=== PATIENT | female | born 1950 | race Caucasian/White ===

== ENCOUNTER 2016-04-19 08:01 | Outpatient (RCR) | payer MEDICARE ==
--- OUTSIDE RECORDS SUMMARY | 2016-01-24 08:13 | XMS REPORT | Continuity of Care Document ---
Author Author [facility] Organization [facility] Address Unknown Phone Unavailable Care Team Providers Care Whitewasher Name Role Phone MEGHNA CASTRO MD PCP Insurance Providers Payer Name Policy Number Subscriber Name Relationship Wps Medicare [id number] Gaby Conti 18 Self / Same As Patient Blue Cross [facility] Supp [id number] Gaby Conti 18 Self / Same As Patient Advance Directives Directive Response Recorded Date/Time Advance Directives No 11/17/15 9:36am Health Care Power of Master Planner No 11/17/15 9:36am Organ Donor Yes 11/17/15 9:36am Problems No problem information available. Medications Current Home Medications Medication Dose Units Route Directions Days/Qty Instructions Start Date Sevelamer Carbonate 800 Mg 2,400 Mg Oral Three Times Daily With Meals take 4 (800mg) tab 11/14/15 Sevelamer Carbonate 800 Mg 1,600 Mg Oral Bedtime take 2 (800mg) tabs 11/14/15 Famotidine 20 Mg Oral Daily 11/14/15 Clonidine Hcl 0.1 Mg 0.1 Mg Oral Three Times A Day as needed for High Blood Pressure 11/14/15 Carvedilol 25 Mg 25 Mg Oral Twice A Day 11/14/15 Aspirin 81 Mg 81 Mg Oral Daily 11/14/15 Warfarin Sodium 10 Mg 10 Mg Oral Bedtime 11/14/15 Simvastatin 40 Mg 40 Mg Oral Bedtime 11/14/15 Dicloxacillin Sodium 500 Mg 500 Mg Oral Four Times Daily 11/14/15 Hydrocodone/Acetaminophen 1 Each 1-2 Each Oral Every 4HRS 35 11/17/15 Past Home Medications Medication Directions Ordered Status Amiodarone Hcl 200 Mg Tablet, 200 Mg Oral Twice A Day 02/09/14 Discontinued Amlodipine Besylate (Norvasc 5 Mg) 5 Mg Tablet, 5 Mg Oral Twice A Day Discontinued Aspirin 81 Mg Chew, 81 Mg Oral Daily 02/09/14 Discontinued Atorvastatin Calcium 80 Mg Tablet, 80 Mg Oral Bedtime 02/09/14 Discontinued Vit B Cmplx 3/Fa/Vit C/Biotin 1 Each Tablet, 1 Tab Oral Daily 02/09/14 Discontinued Levothyroxine Sodium 50 Mcg Tablet, 50 Mcg Oral Daily 02/09/14 Discontinued [Magnesium Gluc] , 500 Mg Oral Three Times A Day 02/09/14 Discontinued Melatonin/Pyridoxine Hcl (B6) 1 Each Tablet, 5 Mg Oral Bedtime 02/09/14 Discontinued Metoclopramide Hcl (Reglan) 10 Mg Tablet, 10 Mg Oral Every 6 Hours 02/09/14 Discontinued Pantoprazole Sod 40 Mg Tab, 40 Mg Oral Daily 02/09/14 Discontinued Carvedilol (Coreg) 25 Mg Tablet, 25 Mg Oral Twice A Day 02/09/14 Discontinued Lisinopril (Zestril) 20 Mg Tablet, 20 Mg Oral 1700 02/09/14 Discontinued Furosemide (Lasix) 80 Mg Tablet, 80 Mg Oral Sat,Sat,Sat02/09/14 Discontinued Sevelamer Carbonate 800 Mg Tablet, 800 Mg Oral Three Times A Day Before Meals 02/09/14 Discontinued Famotidine (Pepcid) 20 Mg Tablet, 20 Mg Oral Daily 02/09/14 Discontinued Nitroglycerin 0.4 Mg Tab.subl, 0.4 Mg Sublingual Daily as needed for Chest Pain 02/09/14 Discontinued [Amiodarone Hcl] 200 Mg Tab, 200 Mg Oral Twice A Day 02/10/14 Discontinued Albuterol Sulfate 2.5 Mg/3 Ml Nebu, 2.5 Mg Inhalation Rt Q2hr From Start Time as needed for Soa 02/10/14 Discontinued Acetaminophen 325 Mg Tab, 650 Mg Oral Every 4HRS as needed for Mild Pain Discontinued Metoclopramide Hcl 5 Mg Tab, 5 Mg Oral Before Meals And At Bedtime 02/10/14 Discontinued [Magnesium Oxide] 400 Mg Tab, 400 Mg Oral Three Times Daily With Meals Discontinued [Melatonin] 3 Mg Tablet, 6 Mg Oral Bedtime 02/10/14 Discontinued Pantoprazole Sod 40 Mg Tab, 40 Mg Oral Daily@0700 02/10/14 Discontinued [Amlodipine Besylate] 5 Mg Tab, 5 Mg Oral Twice A Day 02/10/14 Discontinued [Atorvastatin Calcium] 80 Mg Tablet, 80 Mg Oral Bedtime 02/10/14 Discontinued Social History Social History Problem Response Recorded Date/Time Alcohol Use Denies Use 11/17/2015 9:36am Recreational Drug Use No 11/17/2015 9:36am Recent Foreign Travel No 12/06/2015 7:58am Sexually Transmitted Disease No 11/17/2015 9:36am HIV/AIDS No 11/17/2015 9:36am Type Used Cigarettes 11/17/2015 3:46pm Sexually Transmitted Disease No 11/17/2015 9:36am Hospital Discharge Instructions No hospital discharge instructions. Plan of Care Prescriptions See Medication Section Functional Status No functional status results. Allergies, Adverse Reactions, Alerts No known allergies. Immunizations No immunization records. Vital Signs No known vital signs results. Results Microbiology Results Procedure Source Result Collection Date/Time Result Date/Time Anaerobic Culture Tissue, Coccyx No growth 12/06/2015 9:35am 12/09/2015 2: 31pm Wound Culture Tissue, Coccyx No growth 12/06/2015 9:35am 12/07/2015 8:59am Anaerobic Culture Tissue, Coccyx No growth 12/20/2015 8:45am 12/22/2015 12: 55pm Wound Culture Tissue, Coccyx No growth 12/20/2015 8:45am 12/21/2015 8:54am Procedures No known history of procedures. Encounters Encounter Location Arrival/Admit Date Discharge/Depart Date Attending Provider Discharged Recurring [facility] 01/17/16 8:11am 8:51am JEREMIAH BENTLEY MD
[~2016-04-19 08:01] MED LIST: AC325T PO; ALBU2.5V52 INH; AMIO200T PO; AMLO5TAB2 PO; ASP81CT PO; ASPI-586 PO; ATOR80TA75 PO; Amiodarone Hcl PO; Amlodipine Besylate PO; Atorvastatin Calcium PO; CARV25TA PO; CLON0.1T PO; DICL500C PO; FAMO20TA3 PO; FAMO20TA5 PO; FURO80TA3 PO; HYDR-3730 PO; LEVO50TA59 PO; LISI20TA PO; MAGNESIUM GLUC PO; MELA1TAB16 PO; METO10TA3 PO; METO5TAB2 PO; Magnesium Oxide PO; Melatonin PO; NITR0.4T SL; PNT40TEC PO; SEVE800T7 PO; SIMV40TA4 PO; VIT1TABL59 PO; WARF10TA44 PO; [UNRECOGNIZED DRUG - CODE] PO
== END 2016-04-23 | disposition home or self-care (01) ==
LOC: WOUNDCARE 08:01
PROVIDERS: ATTEND Surgery
DX: L98.423 Non-pressure chronic ulcer of back with necrosis of muscle (principal); T81.31XA Disruption of external operation (surgical) wound, not elsewhere classified, initial encounter; N18.6 End stage renal disease; T65.222D Toxic effect of tobacco cigarettes, intentional self-harm, subsequent encounter
CPT/HCPCS: 11042; 11045; 15271; 87070; 87075; 87077; 87101; 87186; 87205; 97605

== ENCOUNTER 2016-05-31 09:50 | Outpatient (CLI) | payer MEDICARE ==
[~2016-05-31] VITALS: Ht 162.6 cm; Wt 64.5 kg
--- OUTSIDE RECORDS SUMMARY | 2016-05-31 09:54 | XMS REPORT | Continuity of Care Document ---
Author Author [facility] Organization [facility] Address Unknown Phone Unavailable Care Team Providers Care Engineer Geophysical Laboratory Name Role Phone MEGHNA CASTRO MD PCP Insurance Providers Payer Name Policy Number Subscriber Name Relationship Wps Medicare [id number] Gaby Conti 18 Self / Same As Patient Blue Cross [facility] Supp [id number] Gaby Conti 18 Self / Same As Patient Advance Directives Directive Response Recorded Date/Time Advance Directives No 11/17/15 9:36am Health Care Power of Technical Specialist Cytology No 11/17/15 9:36am Organ Donor Yes 11/17/15 [...] Discharge/Depart Date Attending Provider Discharged Recurring [facility] 01/17/16 8:11am 8:51am JEREMIAH BENTLEY MD
[2016-05-31 10:00] VITALS: BP 166/86
[2016-05-31] MEDS ORDERED: CARV12.53 PO (10:16)
[2016-05-31] MEDS ORDERED: HYDR-3812 PO (10:16)
[2016-05-31] MEDS ORDERED: SODI650T PO (10:16)
[2016-05-31] MEDS ORDERED: WARF4TAB70 PO (10:16)
== END 2016-05-31 10:15 | disposition home or self-care (01) ==
LOC: PREOP 09:50
PROVIDERS: ATTEND Podiatrist Foot & Ankle Surgery
DX: Z01.818 Encounter for other preprocedural examination (principal); Z11.2 Encounter for screening for other bacterial diseases; M86.672 Other chronic osteomyelitis, left ankle and foot
CPT/HCPCS: 87081

== ENCOUNTER 2016-06-01 11:18 | Day surgery (SDC) | payer MEDICARE ==
[~2016-06-01] VITALS: Ht 162.6 cm; Wt 64.5 kg
[~2016-06-01 11:18] MED LIST changes: +CARV12.53 PO; +HYDR-3812 PO; +SODI650T PO; +WARF4TAB70 PO
--- OUTSIDE RECORDS SUMMARY | 2016-06-01 11:30 | XMS REPORT | Continuity of Care Document ---
Author Author [facility] Organization [facility] Address Unknown Phone Unavailable Care Team Providers Care Cable Hooker Name Role Phone MEGHNA CASTRO MD PCP Insurance Providers Payer Name Policy Number Subscriber Name Relationship Wps Medicare [id number] Gaby Conti 18 Self / Same As Patient Blue Cross [facility] Supp [id number] Gaby Conti 18 Self / Same As Patient Advance Directives Directive Response Recorded Date/Time Advance Directives No 11/17/15 9:36am Health Care Power of Lighting Engineer No 11/17/15 9:36am Organ Donor Yes 11/17/15 [...] Discharge/Depart Date Attending Provider Discharged Recurring [facility] 01/17/16 8:11am 8:51am JEREMIAH BENTLEY MD
--- OUTSIDE RECORDS SUMMARY | 2016-06-01 11:31 | XMS REPORT | Continuity of Care Document ---
Author Author [facility] Organization [facility] Address Unknown Phone Unavailable Care Team Providers Care Pediatric Oncologist Name Role Phone MEGHNA CASTRO MD PCP Insurance Providers Payer Name Policy Number Subscriber Name Relationship Wps Medicare [id number] Gaby Conti 18 Self / Same As Patient Blue Cross [facility] Supp [id number] Gaby Conti 18 Self / Same As Patient Advance Directives Directive Response Recorded Date/Time Advance Directives No 11/17/15 9:36am Health Care Power of Tea Tree Farmer No 11/17/15 9:36am Organ Donor Yes 11/17/15 [...] Discharge/Depart Date Attending Provider Discharged Recurring [facility] 01/17/16 8:11am 8:51am JEREMIAH BENTLEY MD
[2016-06-01] MEDS ORDERED: ceFAZolin 1 GM/NS 50 ML IVPB IV ONE ×2 (11:45)
[2016-06-01] MEDS ORDERED: LACTATED RINGERS 1,000 ML IV PRN (11:46)
[2016-06-01] MEDS ORDERED: MIDAZOLAM 2 MG/2 ML (VERSED) VIAL ONE (11:52)
[2016-06-01] MEDS ORDERED: LIDOCAINE PF 2% 10 ML (XYLOCAINE) AMP ONE (11:52)
[2016-06-01] MEDS ORDERED: proPOfol 200 MG/20 ML (DIPRIVAN) VIAL IV ONE (11:52)
[2016-06-01] MEDS ORDERED: fentaNYL INJECTION 100 MCG/2 ML AMP ONE (11:52)
[2016-06-01 12:12] VITALS: BP 120/72
[2016-06-01] MEDS ORDERED: BUPIVACAINE 0.5% 30 ML (SENSORCAINE) VIAL ONE (12:22)
[2016-06-01] MEDS ORDERED: LIDOCAINE 1% INJ 20 ML (XYLOCAINE) VIAL ONE (12:22)
[2016-06-01 12:25] LABS: INR 1.1 (0.8-1.4); PROTHROMBIN TIME PATIENT 13.9 SEC (12.2-14.7)
--- NOTE | 2016-06-01 12:33 | Progress Note-Pre Operative ---
Pre-Operative Progress Note H&P Reviewed The H&P was reviewed, patient examined and no changes noted. Date H&P Reviewed: Jun 01, 2016 Time H&P Reviewed: 12:32 Pre-Operative Diagnosis: Osteomyelitis left 3rd toe ARSLAN BRITO DPM Jun 01, 2016 12:33 pm
[2016-06-01] MEDS ORDERED: NS IV 500 ML 500 ML ONE (13:37)
[2016-06-01] MEDS ORDERED: LACTATED RINGERS 1,000 ML IV SCH (13:39)
--- NOTE | 2016-06-01 13:39 | Progress Note-Post Operative ---
Post-Operative Progess Note Pre-Operative Diagnosis Osteomyelitis left 3rd toe Post-Operative Diagnosis Same Post-Op Procedure Note Date of Procedure: Jun 01, 2016 Name of Procedure: Amputation of the left 3rd toe Anesthesia Type MAC Estimated blood loss (mL): Minimal Packing: none Specimen(s) collected 1) left 3rd toe distal and middle phalanx 2) head of the left 3rd toe proximal phalanx ARSLAN BRITOM Jun 01, 2016 1:39 pm
[2016-06-01] MEDS ORDERED: ONDANSETRON 4 MG/2 ML (SDV) Z0FRAN IV PRN (13:45)
[2016-06-01] MEDS ORDERED: PROMETHAZINE INJ 25 MG/ML (PHENERGAN) AMP IV PRN (13:45)
[2016-06-01] MEDS ORDERED: morphine INJ 10 MG/ML 1ML (SYR OR VIAL) IV PRN (13:45)
[2016-06-01] MEDS ORDERED: HYDROcodone/APAP 5 MG/325 MG (LORTAB) TAB PO PRN (13:45)
[2016-06-01 14:40] VITALS: BP 195/81
[2016-06-01 14:55] VITALS: BP 195/81
--- NOTE | 2016-06-03 11:51 | OPERATIVE REPORT ---
PROCEDURE PHYSICIAN: OLIVIA BRITO DATE OF PROCEDURE: 06/01/2016 SURGEON: Olivia Brito DPM PREOPERATIVE DIAGNOSIS: Osteomyelitis left 3rd toe. POSTOPERATIVE DIAGNOSIS: Osteomyelitis left 3rd toe. PROCEDURE: Amputation left 3rd toe. WOUND CLASS: Contaminated. ANESTHESIA: Monitored anesthesia care. HEMOSTASIS: None. INDICATION: This 65-year-old female presented to my office after she had a chronic wound healed to the left 3rd toe. Upon x-ray there is significant osteolyses of the entire distal phalanx left 3rd toe, then extending into the proximal phalanx. We discussed different options including conservative therapy, as well as surgical options. The patient has opted to have an amputation of the left 3rd toe understanding that there is a chance of the wound not healing, continued infection and other complications and she is willing to proceed. PROCEDURE: The patient was brought back to operating table, placed in a secure, supine position. Pneumatic ankle tourniquet was placed over the left lower extremity over several layers of padding. It was never inflated during the procedure. The left foot was anesthetized utilizing 12 mL of 1:1 mixture 1% Xylocaine 0.5% Marcaine injected in a local infusion to the distal 3rd ray around the metatarsal head area. The left foot was then prepped and draped in normal sterile manner. Attention was then directed to the left 3rd digit where some erythema was present to the distal aspect of the toe. Scar tissue consistent with a chronic wound. There is no active exudate. There is no proximal streaking noted. An incision was created in a racquet-type incision, the long hand of the racquet handle incision was dorsal extending to the medial and lateral aspect of the digit overlying the proximal interphalangeal joint area. The proximal interphalangeal joint was disarticulated and the specimen sent for gross and microscopic evaluation which included the distal and middle phalanx. Beyond this, the more proximal portion of the digit has no pathology visualized. The wound was flushed the most extensor and flexor tendons were cut as proximally as possible. Utilizing a power sagittal saw the head of the proximal phalanx was removed. This allowed for closure to be performed without any tension to the skin. The wound was flushed with copious amounts of normal saline. A swab culture was taken before closure. Closure was then performed with 4-0 Prolene in a simple interrupted type stitch noting appropriate perfusion to the skin edges of the amputation site. Postoperative dressing consisted of Betadine soaked Adaptic, sterile 4 x 4, sterile Kerlix, all secured with a Coban wrap. The patient tolerated the anesthesia and procedure well and was transported from the operating room to the recovery area with vital signs stable and vascular status intact to all remaining digits of the left foot with the appropriate capillary fill time. She is to continue with antibiotic. The patient is to follow-up in my office in one week period of time or sooner if necessary. She is to be partial weight-bearing with a walker and a surgical splint shoe. Job ID: [id number] Dictated Date: 06/01/2016 13:45:40 Vending Manager Date: 06/03/2016 11:35:22 / pastora
== END 2016-06-01 14:55 | disposition home or self-care (01) ==
LOC: SDC 11:18
PROVIDERS: ATTEND Podiatrist Foot & Ankle Surgery
DX: M86.672 Other chronic osteomyelitis, left ankle and foot (principal); Z79.01 Long term (current) use of anticoagulants
CPT/HCPCS: 36415; 85610; 87070; 87075; 87205; 88304; 88305; 88311

== ENCOUNTER 2016-07-17 08:10 | Outpatient (RCR) | payer MEDICARE ==
--- OUTSIDE RECORDS SUMMARY | 2016-04-24 08:14 | XMS REPORT | Continuity of Care Document ---
Author Author [facility] Organization [facility] Address Unknown Phone Unavailable Care Team Providers Care Leach Runner Name Role Phone MEGHNA CASTRO MD PCP Insurance Providers Payer Name Policy Number Subscriber Name Relationship Wps Medicare [id number] Gaby Conti 18 Self / Same As Patient Blue Cross [facility] Supp [id number] Gaby Conti 18 Self / Same As Patient Advance Directives Directive Response Recorded Date/Time Advance Directives No 11/17/15 9:36am Health Care Power of Water Operator No 11/17/15 9:36am Organ Donor Yes 11/17/15 [...] Discharge/Depart Date Attending Provider Discharged Recurring [facility] 01/17/16 8:11am 8:51am JEREMIAH BENTLEY MD
== END 2016-07-23 | disposition home or self-care (01) ==
LOC: WOUNDCARE 08:10
PROVIDERS: ATTEND Surgery
DX: L98.423 Non-pressure chronic ulcer of back with necrosis of muscle (principal); T81.31XA Disruption of external operation (surgical) wound, not elsewhere classified, initial encounter; N18.6 End stage renal disease; T65.222D Toxic effect of tobacco cigarettes, intentional self-harm, subsequent encounter
CPT/HCPCS: 11042; 87070; 87075; 87205; 97605; 99212

== ENCOUNTER 2017-01-11 10:15 | Outpatient (RCR) | payer MEDICARE | END 2017-01-19 | disposition home or self-care (01) | LOC: ONC 10:15 | PROVIDERS: ATTEND Radiology Radiation Oncology | DX: C44.320 Squamous cell carcinoma of skin of unspecified parts of face (principal) | CPT/HCPCS: 99214 ==

== ENCOUNTER → 2017-01-22 | Outpatient (CLI) | payer MEDICARE | LOC: RAD 13:56 | DX: C44.329 Squamous cell carcinoma of skin of other parts of face (principal) | CPT/HCPCS: 71250 ==

== ENCOUNTER 2017-04-26 09:33 | Outpatient (RCR) | payer MEDICARE, BC ==
[~2017-04-26 09:33] MED LIST changes: +ACHD5005 PO; +ARTIFICIAL TEARS OU SCH; -HYDR-3812 PO; +TETRACAINE 0.5% OU SCH
== END 2017-05-09 | disposition home or self-care (01) ==
LOC: ONC 09:33
PROVIDERS: ATTEND Radiology Radiation Oncology
DX: C44.320 Squamous cell carcinoma of skin of unspecified parts of face (principal)
CPT/HCPCS: 77290; 77300; 77332; 77334; 77336

== ENCOUNTER → 2018-07-17 | Outpatient (CLI) | payer MEDICARE ==
[~2018-07-17] MED LIST changes: -ARTIFICIAL TEARS OU SCH; -TETRACAINE 0.5% OU SCH
[2018-07-17 11:50] LABS: INR 1.8 (0.8-1.4); PROTHROMBIN TIME PATIENT 21.3 SEC (12.2-14.7)
== END ==
LOC: LAB FS 11:18
PROVIDERS: ATTEND Family Medicine
DX: Z51.81 Encounter for therapeutic drug level monitoring (principal); Z79.01 Long term (current) use of anticoagulants
CPT/HCPCS: 36415; 85610

== ENCOUNTER → 2018-07-31 | Outpatient (CLI) | payer MEDICARE | LOC: CARD 09:49 | PROVIDERS: ATTEND Internal Medicine Cardiovascular Disease | DX: I48.91 Unspecified atrial fibrillation (principal); J44.9 Chronic obstructive pulmonary disease, unspecified; I12.0 Hypertensive chronic kidney disease with stage 5 chronic kidney disease or end stage renal disease; N18.6 End stage renal disease; Z72.0 Tobacco use; I34.0 Nonrheumatic mitral (valve) insufficiency | CPT/HCPCS: 93306 ==

== ENCOUNTER → 2018-08-01 | Outpatient (CLI) | payer MEDICARE ==
[~2018-08-01] VITALS: Ht 162.6 cm; Wt 56.7 kg
[~2018-08-01] MED LIST changes: +CATHETER FLUSH 10 ML SYR IV PRN; +REGADENOSON 0.4 MG/5 ML SYR (LEXISCAN) IV ONE
[2018-08-01 08:28] VITALS: BP 173/127
[2018-08-01 08:30] VITALS: BP 152/71
--- NOTE | 2018-08-01 13:00 | STRESS TEST ---
DATE OF SERVICE: 08/01/2018 LEXISCAN MYOVIEW STRESS TEST REPORT REFERRING PHYSICIAN Baseline heart rate is 94. Baseline blood pressure is 173/83. Baseline EKG is atrial fibrillation with no ischemic changes. In summary, the patient was injected with 10.66 mCi of technetium-99 Myoview and the resting images were obtained. With peak stress level, then the patient received 0.4 mg of Lexiscan followed by 32.0 mCi of technetium-99 Myoview. Throughout the test, there were no EKG changes. The resting and stress images were reviewed and compared in the short axis, horizontal long axis, and vertical long axis views. Review of the images showed a good radiotracer uptake, there is mild decreased uptake at the mid to apical inferolateral wall with subtle reversibility, no significant ischemia was noted. SSS is 4, SDS is 4, TID value 1.11. On the gated images, the left ventricle appeared to be normal size with normal contractility. Calculated ejection fraction is 71%. CONCLUSION: 1. The patient tolerated Lexiscan well. 2. Mild extra cardiac attenuation affecting the quality of the images. There is mild decreased uptake at the mid to apical inferolateral wall with subtle reversibility, no significant ischemia or infarction was seen. 3. Normal left ventricular size with normal contractility. Calculated ejection fraction is 61%, gated images are unreliable due to underlying atrial fibrillation. Job ID: [id number] DocumentID: [id number] Dictated Date: 08/01/2018 10:32:54 Hand Roller Engraver Date: 08/01/2018 12:59:28 Dictated By: CHAYO HERMAN MD
== END ==
LOC: CARD 06:35
PROVIDERS: ATTEND Internal Medicine Cardiovascular Disease
DX: I48.91 Unspecified atrial fibrillation (principal); J44.9 Chronic obstructive pulmonary disease, unspecified; I12.0 Hypertensive chronic kidney disease with stage 5 chronic kidney disease or end stage renal disease; N18.6 End stage renal disease; Z72.0 Tobacco use
CPT/HCPCS: 78452; 93017

== ENCOUNTER → 2018-08-14 | Outpatient (CLI) | payer MEDICARE ==
[~2018-08-14] MED LIST changes: -CATHETER FLUSH 10 ML SYR IV PRN; -REGADENOSON 0.4 MG/5 ML SYR (LEXISCAN) IV ONE
[2018-08-14 11:02] LABS: INR 1.1 (0.8-1.4); PROTHROMBIN TIME PATIENT 14.6 SEC (12.2-14.7)
== END ==
LOC: LAB FS 10:17
PROVIDERS: ATTEND Family Medicine
DX: Z51.81 Encounter for therapeutic drug level monitoring (principal); Z79.01 Long term (current) use of anticoagulants
CPT/HCPCS: 36415; 85610

== ENCOUNTER → 2018-08-21 | Outpatient (CLI) | payer MEDICARE ==
[~2018-08-21] MED LIST changes: +WARF6TAB49 PO
== END ==
LOC: LAB FS 16:33
PROVIDERS: ATTEND Family Medicine
DX: I12.0 Hypertensive chronic kidney disease with stage 5 chronic kidney disease or end stage renal disease (principal); N18.6 End stage renal disease; I25.10 Atherosclerotic heart disease of native coronary artery without angina pectoris; I73.9 Peripheral vascular disease, unspecified; I48.0 Paroxysmal atrial fibrillation; Z79.82 Long term (current) use of aspirin; Z79.01 Long term (current) use of anticoagulants

== ENCOUNTER 2018-08-26 11:38 | Outpatient (CLI) | payer MEDICARE ==
[~2018-08-26] VITALS: Ht 162.6 cm; Wt 59.0 kg
[~2018-08-26 11:38] MED LIST changes: -WARF6TAB49 PO
[2018-08-26] MEDS ORDERED: WARF6TAB49 PO (12:57)
== END 2018-08-26 13:51 | disposition home or self-care (01) ==
LOC: PREOP 11:38
PROVIDERS: ATTEND Podiatrist Foot & Ankle Surgery
DX: Z01.818 Encounter for other preprocedural examination (principal)

== ENCOUNTER → 2018-08-28 | Outpatient (CLI) | payer MEDICARE ==
[~2018-08-28] MED LIST changes: +WARF6TAB49 PO
== END | disposition home or self-care (01) ==
LOC: PREOP 05:39
PROVIDERS: ATTEND Podiatrist Foot & Ankle Surgery
DX: Z01.818 Encounter for other preprocedural examination (principal)

== ENCOUNTER 2018-09-01 05:50 | Day surgery (SDC) | payer MEDICARE ==
[2018-09-01] VITALS (7 sets, daily range): BP systolic 108–126; BP diastolic 49–55
[~2018-09-01] VITALS: Ht 158.8 cm; Wt 59.4 kg
--- OUTSIDE RECORDS SUMMARY | 2018-09-01 05:52 | XMS REPORT | Clinical Summary ---
Author Author [facility] Organization [facility] Address Unknown Phone Unavailable Care Team Providers Care Bullet Slug Casting Machine Operator Name Role Phone Self, Damon PERALTA PCP Unavailable Source Comments Some departments are not documenting in the electronic medical record. If you do not see the information that you expected, contact Release of Information in the Health Information Management department at [phone] for further assistance in locating additional records.[facility] Allergies No Known Allergies Medications End Date Status Medication Sig Dispensed Refills Start Date Active aspirin EC 81 mg tablet Take 81 mg by 0 mouth daily after lunch. Take with food. Active famotidine (PEPCID) 20 mg Take 20 mg by 0 tablet mouth daily after lunch. Active Sevelamer Carbonate Take 2 Tabs 0 (RENVELA) 800 mg tab by mouth three times daily with meals. And 1 tablet with each snack Active sodium bicarbonate 650 mg Take 650 mg 0 tablet by mouth twice daily. Active senna (SENOKOT) 8.6 mg Take 1 Tab by 90 Tab 3 tablet mouth twice 7 daily. Active carvedilol (COREG) 25 mg Take 25 mg by 0 tablet mouth twice daily with meals. Take with food. Active mupirocin (BACTROBAN) 2 % Apply 22 g 0 topical ointment topically to 8 affected area twice daily. Apply to buttock incision daily and cover with abd pad/hypafix tape, wash soap and water prior to dressing change Active warfarin (COUMADIN) 4 mg Take 1 tablet 90 tablet 3 tablet by mouth at 8 bedtime daily. Active amLODIPine (NORVASC) 10 Take 1 tablet 90 tablet 3 mg tablet by mouth 8 daily. Active metroNIDAZOLE (FLAGYL) Take 1 tablet 12 tablet 0 500 mg tablet by mouth 8 twice daily with food. Do not drink alcohol while on metronidazole . Active levoFLOXacin (LEVAQUIN) Take 1 tablet 3 tablet 0 500 mg tablet by mouth 8 every 48 hours. Start on 06/06 Active traMADol (ULTRAM) 50 mg Take 1-2 33 tablet 0 tablet tablets by 8 mouth every 6 hours as needed for Pain. Active senna/docusate (SENNA-S) Take 1 tablet 40 tablet 0 8.6/50 mg tablet by mouth 8 daily. Take while taking prescription pain medication as they can cause constipation. Hold for loose stools. Active ondansetron (ZOFRAN ODT) Dissolve 1 10 tablet 0 4 mg rapid dissolve tablet by 8 tablet mouth every 8 hours as needed for Nausea or Vomiting. Active oxyCODONE (ROXICODONE, Take 1 tablet 30 tablet 0 OXY-IR) 5 mg by mouth 8 tabletIndications: every 6 hours Decubitus ulcer of right as needed buttock, stage 3 (HCC), Late effect of radiation, Complex wound of head Active Problems Problem Noted Date Sacral ulcer 05/29/2017 Pressure ulcer of contiguous region involving back, buttock, and hip, stage 05/23/2017 3 Overview: Added automatically from request for surgery [id number] Late effect of radiation 05/08/2017 Complex wound of head 05/08/2017 Squamous cell carcinoma, face 12/19/2016 Overview: Added automatically from request for surgery [id number] Squamous carcinoma 12/06/2016 Overview: Added automatically from request for surgery [id number] Decubitus ulcer of right buttock, stage 3 11/07/2016 Cigarette smoker 11/07/2016 Acute respiratory failure with hypoxia 08/05/2016 Coronary artery disease involving yocha dehe coronary artery of yocha dehe heart without angina pectoris Essential hypertension 08/03/2016 Mixed hyperlipidemia 08/03/2016 Paroxysmal atrial fibrillation 08/03/2016 Pressure ulcer of sacrum 08/01/2016 History of coronary artery bypass graft x 3 06/20/2016 Renal failure 06/20/2016 Resolved Problems Problem Noted Date Resolved Date Squamous cell carcinoma 12/26/2016 05/08/2017 Squamous cell carcinoma of face 12/12/2016 05/08/2017 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 However, no images beside CT were done. Patient has poor functional status at baseline and adding adjuvant chemotherapy is not warranted right now. Patient would benefit more from radiation therapy. We discussed with the patient the rationale for not using chemotherapy for now given paucity of data to show any benefit without contreras involvement. She has also poor functional status. Patient and her are in agreement. She will follow with local oncology. Sacral decubitus ulcer, stage IV 06/20/2016 11/07/2016 Encounters Care Team Description Date Type Specialty Romeo Dillon MD 07/07/2018 Refill Plastic Surgery Romeo Dillon MD Medication Follow-up (refill request ) 06/04/2018 Telephone Plastic Surgery from Last 3 Months Immunizations Name Dates Previously Given Next Due Pneumococcal Conjugate 01/25/2014 vaccine, unspecified formulation Social History Date Tobacco Use Types Packs/Day Years Used Current Some Day Smoker 1 55 Smokeless Tobacco: Never Used Alcohol Use Drinks/Week oz/Week Comments No 0 Standard 0.0 drinks or equivalent Sex Assigned at Date Recorded Not on file Industry Job Start Date Occupation Not on file Not on file Not on file Travel End Travel History Travel Start No recent travel history available. Last Filed Vital Signs Time Taken Vital Sign Reading 08/06/2017 2:36 PM CDT Blood Pressure 146/82 08/06/2017 2:36 PM CDT Pulse 77 07/03/2017 2:10 PM CDT Temperature 36.4 C (97.5 F) 12/25/2016 9:15 AM CDT Respiratory Rate 16 07/03/2017 2:10 PM CDT Oxygen Saturation 100% - Inhaled Oxygen - Concentration 08/06/2017 2:36 PM CDT Weight 56.7 kg (125 lb) 08/06/2017 2:36 PM CDT Height 162.6 cm (5' 4.02") 08/06/2017 2:36 PM CDT Body Mass Index 21.45 Plan of Treatment Health Maintenance Due Date Last Done Comments HEPATITIS C SCREENING 1950 PHYSICAL (COMPREHENSIVE) 1957 EXAM DTAP/TDAP VACCINES (1 - 1968 Tdap) BREAST CANCER SCREENING 1990 COLORECTAL CANCER 2000 SCREENING SHINGLES RECOMBINANT 2000 VACCINE (1 of 2) OSTEOPOROSIS 07/21/2015 SCREENING/MONITORING PNEUMONIA (PCV13/PPSV23) 07/21/2015 VACCINES (1 of 2 - PCV13) INFLUENZA VACCINE 01/20/2019 Implants Device Identifier Shelf Expiration Date Model / Serial / Lot Implanted Type Area Manufactur er [id number] 10/19/2017 [id number] / . / [id number] Kit 70cm 4fr 18ga 1 Lumen Nitinol Right: Arm CR Guidewire Radstic - [id number] BARD:ACCES Implanted: Qty: 1 on 08/06/2016 by Bon Parmar MD 2018 [id number] / [id number] / [id number] Dressing Biological 2x2in Integra N/A: Forehead INTEGRA: Bovine Collagen - [id number] EXTREMITY Implanted: Qty: 1 on 05/29/2017 by Romeo Coleman MD T Results Not on filefrom Last 3 Months Insurance Type Payer Benefit Subscriber ID Effective Phone Address Plan / Dates Group Medicare MEDICARE MEDICARE xxxxxxxxxx 2013-P PART A AND resent B Medicare BCBS [place] BCBS xxxxxxxxxxxx 2016-P SUPPLEMENT resent [facility] xxxxxxxxx 2016-P ME resent HEALTH[facility]SNF [facility] ([place]) [place] [address] Advance Directives Patient has advance care planning documents, and code status on file. For more information, please contact: [facility] [address] [place] [address] Date Inactivated Comments Code Status Date Activated 06/05/2017 3:36 PM Full Code 05/29/2017 1:00 PM Provider has discussed Code Status Yes w/Patient or Family? 12/27/2016 12:57 PM Full Code 12/26/2016 8:30 PM Provider has discussed Code Status No, discussion not w/Patient or Family? necessary based on Dx 12/13/2016 5:47 PM Full Code 12/12/2016 6:38 PM Provider has discussed Code Status No, discussion not w/Patient or Family? necessary based on Dx 08/09/2016 1:10 PM Full Code 08/01/2016 2:49 PM Provider has discussed Code Status No, discussion not w/Patient or Family? necessary based on Dx
--- OUTSIDE RECORDS SUMMARY | 2018-09-01 05:52 | XMS REPORT | Encounter Summary ---
Author Author [facility] Organization [facility] Address Unknown Phone Unavailable Care Team Providers Care Program Host Name Role Phone Self, Damon PERALTA PCP Unavailable Reason for Visit * Reason Comments Medication Refill Encounter Details Care Team Description Date Type Department Romeo Dillon MD [address] [place] [address] 07/07/2018 Refill [facility] [address] [place] [address] Social History Date Tobacco Use Types Packs/Day [...] Travel Start No recent travel history available. documented as of this encounter Functional Status Date of Assessment Functional Status Response 08/06/2017 Does the patient have a hearing impairment: No 08/06/2017 Does the patient have a visual impairment: No 08/06/2017 Does the patient have impaired ambulation: No 08/06/2017 Does the patient have an activity of daily living No (ADL) impairment: 08/06/2017 Does the patient have an instrumental activity of No daily living (IADL) impairment: Date of Assessment Cognitive Status Response 08/06/2017 Does the patient have a cognitive impairment: No documented as of this encounter Plan of Treatment Not on filedocumented as of this encounter Visit Diagnoses Not on filedocumented in this encounter
--- OUTSIDE RECORDS SUMMARY | 2018-09-01 05:52 | XMS REPORT | Encounter Summary ---
Author Author [facility] Organization [facility] Address Unknown Phone Unavailable Care Team Providers Care Integration Project Manager Name Role Phone Self, Damon PERALTA PCP Unavailable Reason for Visit * Reason Comments Medication Follow-up refill request Encounter Details Care Team Description Date Type Department Romeo Dillon MD [address] [place] [address] Medication Follow-up (refill request ) 06/04/2018 Telephone The [facility] [address] [place] [address] Social History Date Tobacco Use [...] impairment: No documented as of this encounter Miscellaneous Notes * Telephone Encounter - Laura Kincaid RN - 06/04/2018 3:48 PM [employer] Refill request for Norvac received. Pt reports she is not taking Norvasc at this time. PCP called (Diane BRITO) and confirmed pt is not taking Norvasc. Pt to call Dr Loza's office at [phone] to make follow up appointment, verbalized understanding. Laura Kincaid RN [employer] HOLDER ASSEMBLER documented in this encounter Plan of Treatment Not on filedocumented as of this encounter Visit Diagnoses Not on filedocumented in this encounter
--- OUTSIDE RECORDS SUMMARY | 2018-09-01 05:55 | XMS REPORT | Continuity of Care Document ---
Demographics x Preferred Language Unknown Marital Status Unknown Restorationism Affiliation Unknown Race Unknown Ethnic Group Unknown Author Organization Unknown Address Unknown Allergies Active Description Code Type Severity Reaction Onset Reported/Identified Relationship to Patient Clinical Status Yes No Known Drug Allergies [id number] Drug Allergy Unknown N/A 02/09/2014 Medications There is no data. 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, STAGE 4 03/21/1599 JEREMIAH BENTLEY MD, Ot L97.529 NON-PRESSURE CHRONIC ULCER OTH PRT LEFT 03/21/1599 JEREMIAH BENTLEY MD, Ot M46.28 OSTEOMYELITIS OF [place], SACRAL AND SA 03/21/1599 JEREMIAH BENTLEY MD, Ot M86.48 CHRONIC OSTEOMYELITIS WITH DRAINING SINU 03/21/1599 JEREMIAH BENTLEY MD, Ot N18.6 END STAGE RENAL DISEASE 03/21/1599 JEREMIAH BENTLEY MD, Ot N39.42 INCONTINENCE WITHOUT SENSORY AWARENESS 02/10/2014 JAMAR ROMERO MD Ot 250.00 DIAB JULI WO COMPL, TYPE II OR UNSPEC TY 02/10/2014 JAMAR ROMERO MD Ot 273.8 DIS PLAS PROTEIN MET NEC 02/10/2014 JAMAR ROMERO MD Ot 276.1 HYPOSMOLALITY 02/10/2014 JAMAR ROMERO MD Ot 285.1 AC POSTHEMORRHAG ANEMIA 02/10/2014 JAMAR ROMERO MD Ot 285.29 ANEMIA OF OTHER CHRONIC DISEASE 02/10/2014 JAMAR ROMERO MD Ot 305.1 TOBACCO USE DISORDER 02/10/2014 JAMAR ROMERO MD Ot 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 02/10/2014 JAMAR ROMERO MD E Ot 403.91 HYPTNSV CHR KID DIS, UNSPEC, W CHR KD ST 02/10/2014 JAMAR ROMERO MD E Ot 410.92 AC MYOCARDIAL INFARCT,UNSPEC SITE,SUBSEQ 02/10/2014 HEATHER PERALTA JAMAR E Ot 414.00 CORON ATHEROSCLER NOS TYPE VESSEL, NATIV 02/10/2014 JAMAR ROMERO MD E Ot 414.8 CHR ISCHEMIC HRT DIS NEC 02/10/2014 JAMAR ROMERO MD E Ot 427.31 ATRIAL FIBRILLATION 02/10/2014 GLORIA ROMERO MDIC E Ot 433.10 CAROTID ARTERY OCCLUSION W O CEREBRAL IN 02/10/2014 JAMAR ROMERO MD E Ot 433.30 MULT BILTRAL ARTERY OCCLUSION WO CEREBRA 02/10/2014 JAMAR ROMERO MD E Ot 443.9 PERIPH VASCULAR DIS NOS 02/10/2014 GLORIA ROMERO MDIC E Ot 496 CHR AIRWAY OBSTRUCT NEC 02/10/2014 JAMAR ROMERO MD E Ot 518.84 ACUTE AND CHRONIC RESPIRATORY FAILURE 02/10/2014 GLORIA ROMERO MDIC E Ot 585.6 END STAGE RENAL DISEASE 02/10/2014 JAMAR ROMERO MD E Ot 707.03 PRESSURE ULCER, LOWER BACK 02/10/2014 JAMAR ROMERO MD E Ot 707.23 PRESSURE ULCER, STAGE III 02/10/2014 JAMAR ROMERO MD E Ot V45.11 RENAL DIALYSIS STATUS 02/10/2014 JAMAR ROMERO MD E Ot V45.81 AORTOCORONARY BYPASS 02/10/2014 JAMAR ROMERO MD E Ot V57.89 REHABILITATION PROC NEC 02/10/2014 JAMAR ROMERO MD E Ot V58.61 ANTICOAGULANTS,LT,CURRENT USE 10/07/2014 MC PERALTA, JEREMIAH Phillips Ot 707.15 10/18/2014 MC PERALTA, JEREMIAH Phillips Ot 707.15 10/28/2014 JEREMIAH BENTLEY MD Ot 707.15 12/20/2014 MC PERALTA, JEREMIAH Phillips Ot 250.80 12/20/2014 MC PERALTA, JEREMIAH Phillips Ot 707.03 12/20/2014 JEREMIAH BENTLEY MD Ot 707.15 12/20/2014 MC PERALTA, JEREMIAH Phillips Ot 707.24 12/23/2014 MC PERALTA, JEREMIAH Phillips Ot 250.80 12/23/2014 MC PERALTA, JEREMIAH Phillips Ot 707.03 12/23/2014 MC PERALTA, JEREMIAH Phillips Ot 707.15 12/23/2014 MC PERALTA, JEREMIAH Phillips Ot 707.24 12/23/2014 MC PERALTA, JEREMIAH Phillips Ot 250.80 12/23/2014 MC PERALTA, JEREMIAH Phillips Ot 707.03 12/23/2014 MC PERALTA, JEREMIAH Phillips Ot 707.15 12/23/2014 MC PERALTA, JEREMIAH Phillips Ot 707.24 12/26/2014 MC PERALTA, JEREMIAH Phillips Ot 250.80 DIAB W OTH SPEC MANIFEST, TYPE II OR UNS 12/26/2014 JEREMIAH BENTLEY MD Ot 707.03 PRESSURE ULCER, LOWER BACK 12/26/2014 MC PERALTA, JEREMIAH Phillips Ot 707.15 ULCER OF OTHER PART OF FOOT 12/26/2014 JEREMIAH BENTLEY MD Ot 707.24 PRESSURE ULCER, STAGE IV 01/04/2015 MC PERALTA, JEREMIAH Phillips Ot 250.80 01/04/2015 MC PERALTA, JEREMIAH Phillips Ot 707.03 01/04/2015 MC PERALTA, JEREMIAH Phillips Ot 707.15 01/04/2015 MC PERALTA, JEREMIAH Phillips Ot 707.24 01/05/2015 MC PERALTA, JEREMIAH Phillips Ot 250.80 01/05/2015 MC PERALTA, JEREMIAH Phillips Ot 707.03 01/05/2015 MC PERALTA, JEREMIAH Phillips Ot 707.15 01/05/2015 MC PERALTA, JEREMIAH Phillips Ot 707.24 01/19/2015 MC PERALTA, JEREMIAH Phillips Ot 250.80 DIAB W OTH SPEC MANIFEST, TYPE II OR UNS 01/19/2015 JEREMIAH BENTLEY MD Ot 707.03 PRESSURE ULCER, LOWER BACK 01/19/2015 MC PERALTA, JEREMIAH Phillips Ot 707.15 ULCER OF OTHER PART OF FOOT 01/19/2015 JEREMIAH BENTLEY MD Ot 707.24 PRESSURE ULCER, STAGE IV 01/25/2015 MC PERALTA, JEREMIAH Phillips Ot 250.80 01/25/2015 JEREMIAH BENTLEY MD Ot 707.03 01/25/2015 JEREMIAH BENTLEY MD Ot 707.15 01/25/2015 MC PERALTA, JEREMIAH Phillips Ot 707.24 02/17/2015 MC PERALTA, JEREMIAH Phillips Ot 707.15 02/17/2015 JEREMIAH BENTLEY MD Ot 250.80 02/17/2015 MC PERALTA, JEREMIAH Phillips Ot 707.03 02/17/2015 MC PERALTA, JEREMIAH Phillips Ot 707.15 02/17/2015 MC PERALTA, JEREMIAH Phillips Ot 707.24 02/17/2015 MC PERALTA, JEREMIAH Phillips Ot 250.80 02/17/2015 MC PERALTA, JEREMIAH Phillips Ot 707.03 02/17/2015 MC PERALTA, JEREMIAH Phillips Ot 707.15 02/17/2015 MC PERALTA, JEREMIAH Phillips Ot 707.24 02/21/2015 MC PERALTA, JEREMIAH Phillips Ot L89.154 02/21/2015 MC PERALTA, JEREMIAH Phillips Ot M70.88 03/14/2015 MC PERALTA, JEREMIAH Phillips Ot L89.154 03/14/2015 MC PERALTA, JEREMIAH Phillips Ot M70.88 03/22/2015 MC PERALTA, JEREMIAH Phillips Ot L89.154 03/22/2015 MC PERALTA, JEREMIAH Phillips Ot M70.88 03/31/2015 MC PERALTA, JEREMIAH Phillips Ot E11.621 TYPE 2 DIABETES MELLITUS WITH FOOT ULCER 03/31/2015 MC PERALTA, JEREMIAH Phillips Ot 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, STAGE 4 03/31/2015 MC PERALTA, JEREMIAH Phillips Ot L92.9 GRANULOMATOUS DISORDER OF THE SKIN, SUBC 03/31/2015 MC PERALTA, JEREMIAH Phillips Ot L97.522 NON-PRS CHRONIC ULCER OTH PRT LEFT FOOT 04/12/2015 MC PERALTA, JEREMIAH Phillips Ot 707.15 04/12/2015 MC PERALTA, JEREMIAH Phillips Ot L89.154 04/12/2015 MC PERALTA, JEREMIAH Phillips Ot M70.88 04/13/2015 MC PERALTA, JEREMIAH Phillips Ot 707.15 04/13/2015 JEREMIAH BENTLEY MD Ot L89.154 04/13/2015 MC PERALTA, JEREMIAH Phillips Ot M70.88 07/12/2015 JEREMIAH BENTLEY MD Ot I70.245 07/12/2015 MC PERALTA, JEREMIAH Phillips Ot L89.154 07/12/2015 JEREMIAH BENTLEY MD Ot L97.529 07/12/2015 MC PERALTA, JEREMIAH Phillips Ot N18.6 07/12/2015 JEREMIAH BENTLEY MD Ot N39.42 07/13/2015 JEREMIAH BENTLEY MD Ot 707.15 07/13/2015 MC PERALTA, JEREMIAH Phillips Ot L89.154 07/13/2015 MC PERALTA, JEREMIAH Phillips Ot M70.88 07/13/2015 MC PERALTA, JEREMIAH Phillips Ot I70.245 07/13/2015 MC PERALTA, JEREMIAH Phillips Ot L89.154 07/13/2015 MC PERALTA, JEREMIAH Phillips Ot L97.529 07/13/2015 MC PERALTA, JEREMIAH Phillips Ot N18.6 07/13/2015 MC PERALTA, JEREMIAH Phillips Ot N39.42 2015 MC PERALTA, JEREMIAH Phillips Ot I70.245 2015 MC PERALTA, JEREMIAH Phillips Ot L89.154 2015 MC PERALTA, JEREMIAH Phillips Ot L97.529 2015 MC PERALTA, JEREMIAH Phillips Ot N18.6 2015 MC PERALTA, JEREMIAH Phillips Ot N39.42 07/28/2015 MC PERALTA, JEREMIAH Phillips Ot I70.245 07/28/2015 MC PERALTA, JEREMIAH Phillips Ot L89.154 07/28/2015 MC PERALTA, JEREMIAH Phillips Ot L97.529 07/28/2015 MC PERALTA, JEREMIAH Phillips Ot N18.6 07/28/2015 MC PERALTA, JEREMIAH Phillips Ot N39.42 08/02/2015 MC PERALTA, JEREMIAH Phillips Ot I70.245 08/02/2015 MC PERALTA, JEREMIAH Phillips Ot L89.154 08/02/2015 MC PERALTA, JEREMIAH Phillips Ot L97.529 08/02/2015 MC PERALTA, JEREMIAH Phillips Ot N18.6 08/02/2015 MC PERALTA, JEREMIAH Phillips Ot N39.42 08/10/2015 MC PERALTA, JEREMIAH Phillips Ot 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 08/24/2015 JEREMIAH BENTLEY MD, Ot 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, STAGE 4 08/24/2015 JEREMIAH BENTLEY MD, Ot L97.529 NON-PRESSURE CHRONIC ULCER OTH PRT LEFT 08/24/2015 JEREMIAH BENTLEY MD, Ot N18.6 END STAGE RENAL DISEASE 08/24/2015 JEREMIAH BENTLEY MD, Ot N39.42 INCONTINENCE WITHOUT SENSORY AWARENESS 08/29/2015 JEREMIAH BENTLEY MD, Ot 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 08/29/2015 JEREMIAH BENTLEY MD, Ot 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, STAGE 4 08/29/2015 JEREMIAH BENTLEY MD, Ot L97.529 NON-PRESSURE CHRONIC ULCER OTH PRT LEFT 08/29/2015 JEREMIAH BENTLEY MD, Ot M46.28 OSTEOMYELITIS OF [place], SACRAL AND SA 08/29/2015 JEREMIAH BENTLEY MD, Ot N18.6 END STAGE RENAL DISEASE 08/29/2015 JEREMIAH BENTLEY MD, Ot N39.42 INCONTINENCE WITHOUT SENSORY AWARENESS 08/31/2015 JEREMIAH BENTLEY MD, Ot 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 10/15/2015 JEREMIAH BENTLEY MD, Ot 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, STAGE 4 10/15/2015 JEREMIAH BENTLEY MD, Ot L97.529 NON-PRESSURE CHRONIC ULCER OTH PRT LEFT 10/15/2015 JEREMIAH BENTLEY MD, Ot N18.6 END STAGE RENAL DISEASE 10/15/2015 JEREMIAH BENTLEY MD, Ot N39.42 INCONTINENCE WITHOUT SENSORY AWARENESS 10/27/2015 JEREMIAH BENTLEY MD, Ot 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 10/27/2015 JEREMIAH BENTLEY MD, Ot 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, STAGE 4 10/27/2015 JEREMIAH BENTLEY MD, Ot L97.529 NON-PRESSURE CHRONIC ULCER OTH PRT LEFT 10/27/2015 JEREMIAH BENTLEY MD, Ot N18.6 END STAGE RENAL DISEASE 10/27/2015 JEREMIAH BENTLEY MD, Ot N39.42 INCONTINENCE WITHOUT SENSORY AWARENESS 11/02/2015 JEREMIAH BENTLEY MD, Ot 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 11/02/2015 JEREMIAH BENTLEY MD, Ot 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, STAGE 4 11/02/2015 JEREMIAH BENTLEY MD, Ot L97.529 NON-PRESSURE CHRONIC ULCER OTH PRT LEFT 11/02/2015 JEREMIAH BENTLEY MD, Ot M46.28 OSTEOMYELITIS OF [place], SACRAL AND SA 11/02/2015 JEREMIAH BENTLEY MD, Ot M86.48 CHRONIC OSTEOMYELITIS WITH DRAINING SINU 11/02/2015 JEREMIAH BENTLEY MD, Ot N18.6 END STAGE RENAL DISEASE 11/02/2015 JEREMIAH BENTLEY MD, Ot N39.42 INCONTINENCE WITHOUT SENSORY AWARENESS 11/03/2015 JEREMIAH BENTLEY MD, Ot M86.48 CHRONIC OSTEOMYELITIS WITH DRAINING SINU 11/03/2015 JEREMIAH BENTLEY MD, Ot 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, STAGE 4 11/03/2015 JEREMIAH BENTLEY MD, Ot M86.48 CHRONIC OSTEOMYELITIS WITH DRAINING SINU 11/03/2015 JEREMIAH BENTLEY MD, Ot N18.6 END STAGE RENAL DISEASE 11/03/2015 JEREMIAH BENTLEY MD, Ot 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8 OTHER EXTERNAL CAUSE STATUS 11/14/2015 BOOGIE CORDOVA MD, Ot Z01.818 ENCOUNTER FOR OTHER PREPROCEDURAL EXAMIN 11/14/2015 BOOGIE CORDOVA MD, Ot Z11.2 ENCOUNTER FOR SCREENING FOR OTHER BACTER 11/15/2015 BOOGIE CORDOVA MD, Ot S31.000A UNSP OPN WND LOW BACK AND PELV W/O PENET 11/15/2015 BOOGIE CORDOVA MD, Ot X58.XXXA EXPOSURE TO OTHER SPECIFIED FACTORS, INI 11/15/2015 BOOGIE CORDOVA MD, Ot Y99.8 OTHER EXTERNAL CAUSE STATUS 11/15/2015 BOOGIE CORDOVA MD, Ot Z01.818 ENCOUNTER FOR OTHER PREPROCEDURAL EXAMIN 11/15/2015 BOOGIE CORDOVA MD, Ot Z11.2 ENCOUNTER FOR SCREENING FOR OTHER BACTER 11/17/2015 BOOGIE CORDOVA MD, Ot F17.210 NICOTINE DEPENDENCE, CIGARETTES, UNCOMPL 11/17/2015 BOOGIE CORDOVA MD, Ot G62.9 POLYNEUROPATHY, UNSPECIFIED 11/17/2015 BOOGIE CORDOVA MD, Ot I25.10 ATHSCL HEART DISEASE OF [place] CORONARY 11/17/2015 BOOGIE CORDOVA MD Ot I73.9 PERIPHERAL VASCULAR DISEASE, UNSPECIFIED 11/17/2015 BOOGIE CORDOVA MD Ot 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, STAGE 4 11/17/2015 BOOGIE CORDOVA MD Ot N19 UNSPECIFIED KIDNEY FAILURE 11/17/2015 BOOGIE CORDOVA MD Ot Z79.01 NURSING HOME (CURRENT) USE OF ANTICOAGULANT 11/17/2015 BOOGIE CORDOVA MD Ot Z79.899 OTHER NURSING HOME (CURRENT) DRUG THERAPY 11/17/2015 BOOGIE CORDOVA MD Ot Z95.1 PRESENCE OF AORTOCORONARY BYPASS GRAFT 11/18/2015 BOOGIE CORDOVA MD, Ot F17.210 NICOTINE DEPENDENCE, CIGARETTES, UNCOMPL 11/18/2015 BOOGIE CORDOVA MD, Ot G62.9 POLYNEUROPATHY, UNSPECIFIED 11/18/2015 BOOGIE CORDOVA MD Ot I25.10 ATHSCL HEART DISEASE OF [place] CORONARY 11/18/2015 BOOGIE CORDOVA MD Ot I73.9 PERIPHERAL VASCULAR DISEASE, UNSPECIFIED 11/18/2015 BOOGIE CORDOVA MD Ot 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, STAGE 4 11/18/2015 BOOGIE CORDOVA MD Ot N19 UNSPECIFIED KIDNEY FAILURE 11/18/2015 BOOGIE CORDOVA MD Ot Z79.01 NURSING HOME (CURRENT) USE OF ANTICOAGULANT 11/18/2015 BOOGIE CORDOVA MD Ot Z79.899 OTHER NURSING HOME (CURRENT) DRUG THERAPY 11/18/2015 BOOGIE CORDOVA MD, Ot Z95.1 PRESENCE OF AORTOCORONARY BYPASS GRAFT 11/20/2015 BOOGIE CORDOVA MD, Ot S31.000A UNSP OPN WND LOW BACK AND PELV W/O PENET 11/20/2015 BOOGIE CORDOVA MD, Ot X58.XXXA EXPOSURE TO OTHER SPECIFIED FACTORS, INI 11/20/2015 BOOGIE CORDOVA MD, Ot Y99.8 OTHER EXTERNAL CAUSE STATUS 11/20/2015 BOOGIE CORDOVA MD, Ot Z01.818 ENCOUNTER FOR OTHER PREPROCEDURAL EXAMIN 11/20/2015 BOOGIE CORDOVA MD, Ot Z11.2 ENCOUNTER FOR SCREENING FOR OTHER BACTER 12/01/2015 JEREMIAH BENTLEY MD, Ot 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, STAGE 4 12/01/2015 JEREMIAH BENTLEY MD, Ot M86.48 CHRONIC OSTEOMYELITIS WITH DRAINING SINU 12/01/2015 JEREMIAH BENTLEY MD, Ot N18.6 END STAGE RENAL DISEASE 12/19/2015 JEREMIAH BENTLEY MD, Ot 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, STAGE 4 12/19/2015 JEREMIAH BENTLEY MD, Ot M86.48 CHRONIC OSTEOMYELITIS WITH DRAINING SINU 12/19/2015 JEREMIAH BENTLEY MD, Ot N18.6 END STAGE RENAL DISEASE 12/27/2015 JEREMIAH BENTLEY MD, Ot 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 12/27/2015 JEREMIAH BENTLEY MD, Ot N18.6 END STAGE RENAL DISEASE 12/27/2015 JEREMIAH BENTLEY MD, Ot T81.31XA DISRUPTION OF EXTERNAL OPERATION (SURGIC 12/27/2015 JEREMIAH BENTLEY MD, Ot T81.4XXA INFECTION FOLLOWING A PROCEDURE, INITIAL 01/12/2016 JEREMIAH BENTLEY MD, Ot N18.6 END STAGE RENAL DISEASE 01/12/2016 JEREMIAH BENTLEY MD, Ot T81.31XA DISRUPTION OF EXTERNAL OPERATION (SURGIC 01/12/2016 JEREMIAH BENTLEY MD, Ot T81.4XXA INFECTION FOLLOWING A PROCEDURE, INITIAL 01/18/2016 JEREMIAH BENTLEY MD, Ot N18.6 END STAGE RENAL DISEASE 01/18/2016 JEREMIAH BENTLEY MD, Ot T81.31XA DISRUPTION OF EXTERNAL OPERATION (SURGIC 01/18/2016 MC MD, JEREMIAH G Ot T81.4XXA INFECTION FOLLOWING A PROCEDURE, INITIAL 01/18/2016 JEREMIAH BENTLEY MD Ot 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 01/18/2016 JEREMIAH BENTLEY MD, Ot N18.6 END STAGE RENAL DISEASE 01/18/2016 JEREMIAH BENTLEY MD Ot T81.31XA DISRUPTION OF EXTERNAL OPERATION (SURGIC 01/18/2016 JEREMIAH BENTLEY MD Ot T81.4XXA INFECTION FOLLOWING A PROCEDURE, INITIAL 01/19/2016 JEREMIAH BENTLEY MD Ot 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 01/19/2016 JEREMIAH BENTLEY MD Ot N18.6 END STAGE RENAL DISEASE 01/19/2016 JEREMIAH BENTLEY MD Ot T81.31XA DISRUPTION OF EXTERNAL OPERATION (SURGIC 01/19/2016 JEREMIAH BENTLEY MD Ot T81.4XXA INFECTION FOLLOWING A PROCEDURE, INITIAL 01/23/2016 JEREMIAH BENTLEY MD Ot 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 01/23/2016 JEREMIAH BENTLEY MD Ot N18.6 END STAGE RENAL DISEASE 01/23/2016 JEREMIAH BENTLEY MD Ot T65.222D TOXIC EFFECT OF TOBACCO CIGARETTES, SELF 01/23/2016 JEREMIAH BENTLEY MD Ot T81.31XA DISRUPTION OF EXTERNAL OPERATION (SURGIC 01/23/2016 JEREMIAH BENTLEY MD Ot T81.4XXA INFECTION FOLLOWING A PROCEDURE, INITIAL 01/24/2016 JEREMIAH BENTLEY MD Ot N18.6 END STAGE RENAL DISEASE 01/24/2016 JEREMIAH BENTLEY MD Ot T81.31XA DISRUPTION OF EXTERNAL OPERATION (SURGIC 01/24/2016 JEREMIAH BENTLEY MD Ot T81.4XXA INFECTION FOLLOWING A PROCEDURE, INITIAL 03/20/2016 JEREMIAH BENTLEY MD Ot 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 03/20/2016 JEREMIAH BENTLEY MD, Ot N18.6 END STAGE RENAL DISEASE 03/20/2016 JEREMIAH BENTLEY MD Ot T65.222D TOXIC EFFECT OF TOBACCO CIGARETTES, SELF 03/20/2016 JEREMIAH BENTLEY MD Ot T81.31XA DISRUPTION OF EXTERNAL OPERATION (SURGIC 03/21/2016 JEREMIAH BENTLEY MD Ot 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 03/21/2016 JEREMIAH BENTLEY MD, Ot N18.6 END STAGE RENAL DISEASE 03/21/2016 JEREMIAH BENTLEY MD, Ot T65.222D TOXIC EFFECT OF TOBACCO CIGARETTES, SELF 03/21/2016 JEREMIAH BENTLEY MD, Ot T81.31XA DISRUPTION OF EXTERNAL OPERATION (SURGIC 03/27/2016 JEREMIAH BENTLEY MD Ot 707.15 ULCER OF OTHER PART OF FOOT 03/27/2016 JEREMIAH BENTLEY MD, Ot 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, STAGE 4 03/27/2016 JEREMIAH BENTLEY MD, Ot M70.88 OTH SOFT TISSUE DISORDERS RELATED TO USE 03/27/2016 JEREMIAH BENTLEY MD, Ot 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 03/27/2016 JEREMIAH BENTLEY MD, Ot 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, STAGE 4 03/27/2016 JEREMIAH BENTLEY MD, Ot L97.529 NON-PRESSURE CHRONIC ULCER OTH PRT LEFT 03/27/2016 JEREMIAH BENTLEY MD, Ot N18.6 END STAGE RENAL DISEASE 03/27/2016 JEREMIAH BENTLEY MD, Ot N39.42 INCONTINENCE WITHOUT SENSORY AWARENESS 03/27/2016 JEREMIAH BENTLEY MD, Ot 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 03/27/2016 JEREMIAH BENTLEY MD, Ot N18.6 END STAGE RENAL DISEASE 03/27/2016 JEREMIAH BENTLEY MD, Ot T81.31XA DISRUPTION OF EXTERNAL OPERATION (SURGIC 03/27/2016 JEREMIAH BENTLEY MD Ot T81.4XXA INFECTION FOLLOWING A PROCEDURE, INITIAL 03/27/2016 JEREMIAH BENTLEY MD Ot 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 03/27/2016 JEREMIAH BENTLEY MD, Ot N18.6 END STAGE RENAL DISEASE 03/27/2016 JEREMIAH BENTLEY MD Ot T65.222D TOXIC EFFECT OF TOBACCO CIGARETTES, SELF 03/27/2016 JEREMIAH BENTLEY MD Ot T81.31XA DISRUPTION OF EXTERNAL OPERATION (SURGIC 03/28/2016 JEREMIAH BENTLEY MD Ot 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, 03/28/2016 JEREMIAH BENTLEY MD, Ot 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 03/28/2016 JEREMIAH BENTLEY MD, Ot N18.6 END STAGE RENAL DISEASE 03/28/2016 JEREMIAH BENTLEY MD, Ot T81.31XA DISRUPTION OF EXTERNAL OPERATION (SURGIC 04/02/2016 JEREMIAH BENTLEY MD Ot 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, 04/02/2016 JEREMIAH BENTLEY MD Ot 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 04/02/2016 JEREMIAH BENTLEY MD, Ot N18.6 END STAGE RENAL DISEASE 04/02/2016 JEREMIAH BENTLEY MD Ot T81.31XA DISRUPTION OF EXTERNAL OPERATION (SURGIC 04/19/2016 JEREMIAH BENTLEY MD Ot 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, 04/19/2016 JEREMIAH BENTLEY MD Ot 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 04/19/2016 JEREMIAH BENTLEY MD Ot N18.6 END STAGE RENAL DISEASE 04/19/2016 JEREMIAH BENTLEY MD Ot T81.31XA DISRUPTION OF EXTERNAL OPERATION (SURGIC 04/23/2016 JEREMIAH BENTLEY MD Ot 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 04/23/2016 JEREMIAH BENTLEY MD, Ot N18.6 END STAGE RENAL DISEASE 04/23/2016 JEREMIAH BENTLEY MD Ot T65.222D TOXIC EFFECT OF TOBACCO CIGARETTES, SELF 04/23/2016 JEREMIAH BENTLEY MD Ot T81.31XA DISRUPTION OF EXTERNAL OPERATION (SURGIC 04/24/2016 JEREMIAH BENTLEY MD Ot 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 04/24/2016 JEREMIAH BENTLEY MD Ot N18.6 END STAGE RENAL DISEASE 04/24/2016 JEREMIAH BENTLEY MD Ot T65.222D TOXIC EFFECT OF TOBACCO CIGARETTES, SELF 04/24/2016 JEREMIAH BENTLEY MD Ot T81.31XA DISRUPTION OF EXTERNAL OPERATION (SURGIC 04/24/2016 JEREMIAH BENTLEY MD Ot 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, 04/24/2016 JEREMIAH BENTLEY MD, Ot 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 04/24/2016 JEREMIAH BENTLEY MD Ot N18.6 END STAGE RENAL DISEASE 04/24/2016 JEREMIAH BENTLEY MD, Ot T81.31XA DISRUPTION OF EXTERNAL OPERATION (SURGIC 04/24/2016 JEREMIAH BENTLEY MD, Ot 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 04/24/2016 JEREMIAH BENTLEY MD, Ot N18.6 END STAGE RENAL DISEASE 04/24/2016 JEREMIAH BENTLEY MD Ot T65.222D TOXIC EFFECT OF TOBACCO CIGARETTES, SELF 04/24/2016 JEREMIAH BENTLEY MD Ot T81.31XA DISRUPTION OF EXTERNAL OPERATION (SURGIC 04/25/2016 JEREMIAH BENTLEY MD Ot 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 04/25/2016 JEREMIAH BENTLEY MD Ot N18.6 END STAGE RENAL DISEASE 04/25/2016 JEREMIAH BENTLEY MD Ot T65.222D TOXIC EFFECT OF TOBACCO CIGARETTES, SELF 04/25/2016 JEREMIAH BENTLEY MD Ot T81.31XA DISRUPTION OF EXTERNAL OPERATION (SURGIC 04/29/2016 JEREMIAH BENTLEY MD Ot 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 04/29/2016 JEREMIAH BENTLEY MD Ot N18.6 END STAGE RENAL DISEASE 04/29/2016 JEREMIAH BENTLEY MD Ot T65.222D TOXIC EFFECT OF TOBACCO CIGARETTES, SELF 04/29/2016 JEREMIAH BENTLEY MD Ot T81.31XA DISRUPTION OF EXTERNAL OPERATION (SURGIC 05/02/2016 JEREMIAH BENTLEY MD Ot 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, 05/02/2016 JEREMIAH BENTLEY MD Ot 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 05/02/2016 JEREMIAH BENTLEY MD, Ot N18.6 END STAGE RENAL DISEASE 05/02/2016 JEREMIAH BENTLEY MD, Ot T81.31XA DISRUPTION OF EXTERNAL OPERATION (SURGIC 05/31/2016 ALISHA DPM, ARSLAN Q Ot M86.672 OTHER CHRONIC OSTEOMYELITIS, LEFT ANKLE 05/31/2016 ALISHA DPM, ARSLAN Q Ot Z01.818 ENCOUNTER FOR OTHER PREPROCEDURAL EXAMIN 05/31/2016 ALISHA DPM, ARSLAN Q Ot Z11.2 ENCOUNTER FOR SCREENING FOR OTHER BACTER 06/01/2016 ALISHA DPM, ARSLAN Q Ot M86.672 OTHER CHRONIC OSTEOMYELITIS, LEFT ANKLE 06/01/2016 ALISHA DPM, ARSLAN Q Ot Z01.818 ENCOUNTER FOR OTHER PREPROCEDURAL EXAMIN 06/01/2016 ALISHA DPM, ARSLAN Q Ot Z11.2 ENCOUNTER FOR SCREENING FOR OTHER BACTER 06/01/2016 ALISHA DPM, ARSLAN Q Ot M86.672 OTHER CHRONIC OSTEOMYELITIS, LEFT ANKLE 06/01/2016 ALISHA DPM, ARSLAN Q Ot Z79.01 NURSING HOME (CURRENT) USE OF ANTICOAGULANT 06/04/2016 ALISHA DPM, ARSLAN Q Ot M86.672 OTHER CHRONIC OSTEOMYELITIS, LEFT ANKLE 06/04/2016 ALISHA DPM, ARSLAN Q Ot Z79.01 NURSING HOME (CURRENT) USE OF ANTICOAGULANT 06/18/2016 JEREMIAH BENTLEY MD Ot 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 06/18/2016 JEREMIAH BENTLEY MD Ot N18.6 END STAGE RENAL DISEASE 06/18/2016 JEREMIAH BENTLEY MD Ot T65.222D TOXIC EFFECT OF TOBACCO CIGARETTES, SELF 06/18/2016 JEREMIAH BENTLEY MD, Ot T81.31XA DISRUPTION OF EXTERNAL OPERATION (SURGIC 06/21/2016 JEREMIAH BENTLEY MD Ot 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 06/21/2016 JEREMIAH BENTLEY MD, Ot N18.6 END STAGE RENAL DISEASE 06/21/2016 JEREMIAH BENTLEY MD, Ot T65.222D TOXIC EFFECT OF TOBACCO CIGARETTES, SELF 06/21/2016 JEREMIAH BENTLEY MD Ot T81.31XA DISRUPTION OF EXTERNAL OPERATION (SURGIC 06/27/2016 ALISHA DPM, ARSLAN Q Ot M86.672 OTHER CHRONIC OSTEOMYELITIS, LEFT ANKLE 06/27/2016 ALISHA DPM, ARSLAN Q Ot Z79.01 NURSING HOME (CURRENT) USE OF ANTICOAGULANT 07/23/2016 JEREMIAH BENTLEY MD Ot 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 07/23/2016 JEREMIAH BENTLEY MD, Ot N18.6 END STAGE RENAL DISEASE 07/23/2016 JEREMIAH BENTLEY MD Ot T65.222D TOXIC EFFECT OF TOBACCO CIGARETTES, SELF 07/23/2016 JEREMIAH BENTLEY MD Ot T81.31XA DISRUPTION OF EXTERNAL OPERATION (SURGIC 07/24/2016 JEREMIAH BENTLEY MD Ot 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 07/24/2016 JEREMIAH BENTLEY MD, Ot N18.6 END STAGE RENAL DISEASE 07/24/2016 JEREMIAH BENTLEY MD Ot T65.222D TOXIC EFFECT OF TOBACCO CIGARETTES, SELF 07/24/2016 JEREMIAH BENTLEY MD Ot T81.31XA DISRUPTION OF EXTERNAL OPERATION (SURGIC 07/29/2016 JEREMIAH BENTLEY MD Ot 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 07/29/2016 JEREMIAH BENTLEY MD Ot N18.6 END STAGE RENAL DISEASE 07/29/2016 JEREMIAH BENTLEY MD Ot T65.222D TOXIC EFFECT OF TOBACCO CIGARETTES, SELF 07/29/2016 JEREMIAH BENTLEY MD Ot T81.31XA DISRUPTION OF EXTERNAL OPERATION (SURGIC 01/14/2017 LAURIE RICHARDS MD Ot C44.320 SQUAMOUS CELL CARCINOMA OF SKIN OF UNSPE 01/19/2017 LAURIE RICHARDS MD Ot C44.320 SQUAMOUS CELL CARCINOMA OF SKIN OF UNSPE 02/11/2017 LAURIE RICHARDS MD Ot C44.320 SQUAMOUS CELL CARCINOMA OF SKIN OF UNSPE 02/13/2017 OTHER, UNLISTED Ot C44.329 SQUAMOUS CELL CARCINOMA OF SKIN OF OTHER 02/20/2017 OTHER, UNLISTED Ot C44.329 SQUAMOUS CELL CARCINOMA OF SKIN OF OTHER 04/02/2017 LAURIE RICHARDS MD Ot C44.320 SQUAMOUS CELL CARCINOMA OF SKIN OF UNSPE 04/11/2017 LAURIE RICHARDS MD Ot C44.320 SQUAMOUS CELL CARCINOMA OF SKIN OF UNSPE 04/18/2017 LAURIE RICHARDS MD Ot C44.320 SQUAMOUS CELL CARCINOMA OF SKIN OF UNSPE 04/23/2017 LAURIE RICHARDS MD Ot C44.320 SQUAMOUS CELL CARCINOMA OF SKIN OF UNSPE 04/24/2017 LAURIE RICHARDS MD Ot C44.320 SQUAMOUS CELL CARCINOMA OF SKIN OF UNSPE 05/03/2017 LAURIE RICHARDS MD Ot C44.320 SQUAMOUS CELL CARCINOMA OF SKIN OF UNSPE 05/09/2017 LAURIE RICHARDS MD Ot C44.320 SQUAMOUS CELL CARCINOMA OF SKIN OF UNSPE 05/10/2017 LAURIE RICHARDS MD Ot C44.320 SQUAMOUS CELL CARCINOMA OF SKIN OF UNSPE 06/04/2017 LAURIE RICHARDS MD Ot C44.320 SQUAMOUS CELL CARCINOMA OF SKIN OF UNSPE 07/16/2017 LAURIE RICHARDS MD Ot C44.320 SQUAMOUS CELL CARCINOMA OF SKIN OF UNSPE 07/18/2018 MEGHNA CASTRO MD Ot Z79.01 NURSING HOME (CURRENT) USE OF ANTICOAGULANT 07/31/2018 JEREMIAH BENTLEY MD Ot 707.15 ULCER OF OTHER PART OF FOOT 07/31/2018 JEREMIAH BENTLEY MD Ot 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, STAGE 4 07/31/2018 JEREMIAH BENTLEY MD Ot M70.88 OTH SOFT TISSUE DISORDERS RELATED TO USE 07/31/2018 JEREMIAH BENTLEY MD Ot 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 07/31/2018 JEREMIAH BENTLEY MD Ot 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, STAGE 4 07/31/2018 JEREMIAH BENTLEY MD, Ot L97.529 NON-PRESSURE CHRONIC ULCER OTH PRT LEFT 07/31/2018 JEREMIAH BENTLEY MD Ot N18.6 END STAGE RENAL DISEASE 07/31/2018 JEREMIAH BENTLEY MD Ot N39.42 INCONTINENCE WITHOUT SENSORY AWARENESS 07/31/2018 JEREMIAH BENTLEY MD, Ot 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, STAGE 4 07/31/2018 JEREMIAH BENTLEY MD, Ot M86.48 CHRONIC OSTEOMYELITIS WITH DRAINING SINU 07/31/2018 JEREMIAH BENTLYE MD, Ot N18.6 END STAGE RENAL DISEASE 07/31/2018 JEREMIAH BENTLEY MD, Ot 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 07/31/2018 JEREMIAH BENTLEY MD, Ot N18.6 END STAGE RENAL DISEASE 07/31/2018 JEREMIAH BENTLEY MD, Ot T81.31XA DISRUPTION OF EXTERNAL OPERATION (SURGIC 07/31/2018 JEREMIAH BENTLEY MD, Ot T81.4XXA INFECTION FOLLOWING A PROCEDURE, INITIAL 07/31/2018 JEREMIAH BENTLEY MD, Ot 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, 07/31/2018 JEREMIAH BENTLEY MD, Ot 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 07/31/2018 JEREMIAH BENTLEY MD, Ot N18.6 END STAGE RENAL DISEASE 07/31/2018 JEREMIAH BENTLEY MD, Ot T81.31XA DISRUPTION OF EXTERNAL OPERATION (SURGIC 07/31/2018 JEREMIAH BENTLEY MD, Ot 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, 07/31/2018 JEREMIAH BENTLEY MD, Ot 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 07/31/2018 JEREMIAH BENTLEY MD, Ot N18.6 END STAGE RENAL DISEASE 07/31/2018 JEREMIAH BENTLEY MD, Ot T81.31XA DISRUPTION OF EXTERNAL OPERATION (SURGIC 07/31/2018 OTHER, UNLISTED Ot C44.329 SQUAMOUS CELL CARCINOMA OF SKIN OF OTHER 07/31/2018 MAURICE PERALTA, LAURIE E Ot C44.320 SQUAMOUS CELL CARCINOMA OF SKIN OF UNSPE 07/31/2018 JEREMIAH BENTLEY MD Ot 707.15 ULCER OF OTHER PART OF FOOT 07/31/2018 JEREMIAH BENTLEY MD Ot 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, STAGE 4 07/31/2018 JEREMIAH BENTLEY MD, Ot M70.88 OTH SOFT TISSUE DISORDERS RELATED TO USE 07/31/2018 JEREMIAH BENTLEY MD Ot I70.245 ATHSCL [place] ARTERIES OF LEFT LEG W [facility] 07/31/2018 JEREMIAH BENTLEY MD, Ot 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, STAGE 4 07/31/2018 JEREMIAH BENTLEY MD, Ot L97.529 NON-PRESSURE CHRONIC ULCER OTH PRT LEFT 07/31/2018 JEREMIAH BENTLEY MD, Ot N18.6 END STAGE RENAL DISEASE 07/31/2018 JEREMIAH BENTLEY MD, Ot N39.42 INCONTINENCE WITHOUT SENSORY AWARENESS 07/31/2018 JEREMIAH BENTLEY MD, Ot I70.245 ATHSCL [place] ARTERIES OF LEFT LEG W [facility] 07/31/2018 JEREMIAH BENTLEY MD, Ot 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, STAGE 4 07/31/2018 JEREMIAH BENTLEY MD, Ot L97.529 NON-PRESSURE CHRONIC ULCER OTH PRT LEFT 07/31/2018 JEREMIAH BENTLEY MD, Ot N18.6 END STAGE RENAL DISEASE 07/31/2018 JEREMIAH BENTLEY MD, Ot N39.42 INCONTINENCE WITHOUT SENSORY AWARENESS 07/31/2018 JEREMIAH BENTLEY MD, Ot 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, STAGE 4 07/31/2018 JEREMIAH BENTLEY MD, Ot M86.48 CHRONIC OSTEOMYELITIS WITH DRAINING SINU 07/31/2018 JEREMIAH BENTLEY MD, Ot N18.6 END STAGE RENAL DISEASE 07/31/2018 JEREMIAH BENTLEY MD, Ot 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 07/31/2018 JEREMIAH BENTLEY MD, Ot N18.6 END STAGE RENAL DISEASE 07/31/2018 JEREMIAH BENTLEY MD, Ot T81.31XA DISRUPTION OF EXTERNAL OPERATION (SURGIC 07/31/2018 JEREMIAH BENTLEY MD, Ot T81.4XXA INFECTION FOLLOWING A PROCEDURE, INITIAL 07/31/2018 JEREMIAH BENTLEY MD, Ot L92.8 [place] GRANULOMATOUS DISORDERS OF THE SKIN, 07/31/2018 JEREMIAH BENTLEY MD, Ot 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 07/31/2018 JEREMIAH BENTLEY MD, Ot N18.6 END STAGE RENAL DISEASE 07/31/2018 JEREMIAH BENTLEY MD, Ot T81.31XA DISRUPTION OF EXTERNAL OPERATION (SURGIC 07/31/2018 JEREMIAH BENTLEY MD, Ot 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, 07/31/2018 JEREMIAH BENTLEY MD, Ot 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 07/31/2018 JEREMIAH BENTLEY MD, Ot N18.6 END STAGE RENAL DISEASE 07/31/2018 MC PERALTA, JEREMIAH Phillips Ot T81.31XA DISRUPTION OF EXTERNAL OPERATION (SURGIC 07/31/2018 OTHER, UNLISTED Ot C44.329 SQUAMOUS CELL CARCINOMA OF SKIN OF OTHER 07/31/2018 MAURICE PERALTA, LAURIE E Ot C44.320 SQUAMOUS CELL CARCINOMA OF SKIN OF [place] 08/01/2018 MEGHNA CASTRO MD Ot Z51.81 ENCOUNTER FOR THERAPEUTIC DRUG LEVEL MON 08/01/2018 MEGHNA CASTRO MD Ot Z79.01 DELICATESSEN SLICER (CURRENT) USE OF ANTICOAGULANT 08/01/2018 CHAYO HERMAN MD Ot I12.0 HYP CHR KIDNEY DISEASE W STAGE 5 CHR KID 08/01/2018 CHAYO HERMAN MD Ot I34.0 NONRHEUMATIC MITRAL (VALVE) INSUFFICIENC 08/01/2018 CHAYO HERMAN MD Ot I48.91 UNSPECIFIED ATRIAL FIBRILLATION 08/01/2018 CHAYO HERMAN MD Ot J44.9 CHRONIC OBSTRUCTIVE PULMONARY DISEASE, U 08/01/2018 CHAYO HERMAN MD Ot N18.6 END STAGE RENAL DISEASE 08/01/2018 CHAYO HERMAN MD Ot Z72.0 TOBACCO USE 08/04/2018 CHAYO HERMAN MD Ot I12.0 HYP CHR KIDNEY DISEASE W STAGE 5 CHR KID 08/04/2018 CHAYO HERMAN MD Ot I48.91 UNSPECIFIED ATRIAL FIBRILLATION 08/04/2018 CHAYO HERMAN MD Ot J44.9 CHRONIC OBSTRUCTIVE PULMONARY DISEASE, U 08/04/2018 CHAYO HERMAN MD Ot N18.6 END STAGE RENAL DISEASE 08/04/2018 CHAYO HERMAN MD Ot Z72.0 TOBACCO USE 08/15/2018 MEGHNA CASTRO MD Ot Z51.81 ENCOUNTER FOR THERAPEUTIC DRUG LEVEL MON 08/15/2018 MEGHNA CASTRO MD Ot Z79.01 NURSING HOME (CURRENT) USE OF ANTICOAGULANT 08/19/2018 MEGHNA CASTRO MD Ot Z51.81 ENCOUNTER FOR THERAPEUTIC DRUG LEVEL MON 08/19/2018 MEGHNA CASTRO MD Ot Z79.01 NURSING HOME (CURRENT) USE OF ANTICOAGULANT 08/21/2018 CHAYO HERMAN MD Ot I12.0 HYP CHR KIDNEY DISEASE W STAGE 5 CHR KID 08/21/2018 CHAYO HERMAN MD Ot I48.91 UNSPECIFIED ATRIAL FIBRILLATION 08/21/2018 CHAYO HERMAN MD Ot J44.9 CHRONIC OBSTRUCTIVE PULMONARY DISEASE, U 08/21/2018 CHAYO HERMAN MD Ot N18.6 END STAGE RENAL DISEASE 08/21/2018 CHAYO HERMAN MD Ot Z72.0 TOBACCO USE 08/25/2018 MEGHNA CASTRO MD Ot I12.0 HYP CHR KIDNEY DISEASE W STAGE 5 CHR KID 08/25/2018 MEGHNA CASTRO MD Ot I25.10 ATHSCL HEART DISEASE OF [place] CORONARY 08/25/2018 MEGHNA CASTRO MD Ot I48.0 PAROXYSMAL ATRIAL FIBRILLATION 08/25/2018 MEGHNA CASTRO MD Ot I73.9 PERIPHERAL VASCULAR DISEASE, UNSPECIFIED 08/25/2018 MEGHNA CASTRO MD Ot N18.6 END STAGE RENAL DISEASE 08/25/2018 MEGHNA CASTRO MD Ot Z79.01 DELICATESSEN SLICER (CURRENT) USE OF ANTICOAGULANT 08/25/2018 MEGHNA CASTRO MD, Ot Z79.82 DELICATESSEN SLICER (CURRENT) USE OF ASPIRIN 08/27/2018 BEN BRITO DPMIN Q Ot Z01.818 ENCOUNTER FOR OTHER PREPROCEDURAL EXAMIN 08/27/2018 CHAYO HERMAN MD Ot I12.0 HYP CHR KIDNEY DISEASE W STAGE 5 CHR KID 08/27/2018 CHAYO HERMAN MD Ot I34.0 NONRHEUMATIC MITRAL (VALVE) INSUFFICIENC 08/27/2018 CHAYO HERMAN MD Ot I48.91 UNSPECIFIED ATRIAL FIBRILLATION 08/27/2018 CHAYO HERMAN MD, Ot J44.9 CHRONIC OBSTRUCTIVE PULMONARY DISEASE, U 08/27/2018 CHAYO HERMAN MD Ot N18.6 END STAGE RENAL DISEASE 08/27/2018 CHAYO HERMAN MD Ot Z72.0 TOBACCO USE 08/27/2018 CHAYO HERMAN MD Ot I12.0 HYP CHR KIDNEY DISEASE W STAGE 5 CHR KID 08/27/2018 CHAYO HERMAN MD Ot I48.91 UNSPECIFIED ATRIAL FIBRILLATION 08/27/2018 CHAYO HERMAN MD Ot J44.9 CHRONIC OBSTRUCTIVE PULMONARY DISEASE, U 08/27/2018 CHAYO HERMAN MD Ot N18.6 END STAGE RENAL DISEASE 08/27/2018 CHAYO HERMAN MD Ot Z72.0 TOBACCO USE 08/29/2018 ALISHA DPM, ARSLAN Q Ot Z01.818 ENCOUNTER FOR OTHER PREPROCEDURAL EXAMIN Procedures There is no data. Results Test Result Range Bacteria identification in isolate by anaerobe culture - 12/06/15 09:35 Bacteria identification in isolate by anaerobe culture NG NRG Gram stain microscopy - 12/06/15 09:35 GRAM STAIN RESULT FEW WBC'S, NO BACTERIA OBSERVED NRG Bacteria identification in wound by culture - 12/06/15 09:35 Bacteria identification in wound by culture NG NRG Bacteria identification in isolate by anaerobe culture - 12/20/15 08:45 Bacteria identification in isolate by anaerobe culture NG NRG Gram stain microscopy - 12/20/15 08:45 GRAM STAIN RESULT NO BACTERIA NRG Bacteria identification in wound by culture - 12/20/15 08:45 Bacteria identification in wound by culture NG NRG Bacteria identification in isolate by anaerobe culture - 01/24/16 08:39 QUANTITY OF GROWTH Scant Growth NRG Bacteria identification in isolate by anaerobe culture [id number] NRG Gram stain microscopy - 01/24/16 08:39 GRAM STAIN RESULT NO WBC'S OR BACTERIA OBSERVED NRG Bacteria identification in wound by culture - 01/24/16 08:39 Bacteria identification in wound by culture [id number] NRG FREE TEXT [place]TERNAL [place]ENS[place]IT[place] 0756, 1016 NRG QUANTITY OF GROWTH Scant Growth NRG Bacterial susceptibility panel - 01/24/16 08:39 Gentamicin susceptibility test by minimum inhibitory concentration < = NRG Trimethoprim/sulfamethoxazole susceptibility test by minimum inhibitoryconcentration >= NRG Tobramycin susceptibility test by minimum inhibitory concentration < = NRG Cefazolin susceptibility test by minimum inhibitory concentration > = NRG Piperacillin/tazobactam susceptibility test by minimum inhibitory concentration <= NRG Ciprofloxacin susceptibility test by minimum inhibitory concentration <= NRG Meropenem susceptibility test by minimum inhibitory concentration < = NRG Aztreonam susceptibility test by minimum inhibitory concentration < = NRG Cefepime susceptibility test by minimum inhibitory concentration <= NRG Bacterial susceptibility panel - 01/24/16 08:39 Gentamicin susceptibility test by minimum inhibitory concentration S NRG Erythromycin susceptibility test by minimum inhibitory concentration >= NRG Vancomycin susceptibility test by minimum inhibitory concentration 1 NRG Ampicillin susceptibility test by minimum inhibitory concentration < = NRG Linezolid susceptibility test by minimum inhibitory concentration 2 NRG Bacteria identification in isolate by anaerobe culture - 02/21/16 08:30 Bacteria identification in isolate by anaerobe culture NOANA NRG Gram stain microscopy - 02/21/16 08:30 GRAM STAIN RESULT FEW WBC'S, NO BACTERIA OBSERVED NRG Bacteria identification in wound by culture - 02/21/16 08:30 Bacteria identification in wound by culture [id number] NRG [place] [address], 02-23-16 NRG QUANTITY OF GROWTH Scant Growth NRG Bacterial susceptibility panel - 02/21/16 08:30 Gentamicin susceptibility test by minimum inhibitory concentration S NRG Erythromycin susceptibility test by minimum inhibitory concentration >= NRG Vancomycin susceptibility test by minimum inhibitory concentration 1 NRG Ampicillin susceptibility test by minimum inhibitory concentration < = NRG Linezolid susceptibility test by minimum inhibitory concentration 2 NRG Bacteria identification in isolate by anaerobe culture - 03/27/16 08:49 QUANTITY OF GROWTH Scant Growth NRG Bacteria identification in isolate by anaerobe culture [id number] NRG Gram stain microscopy - 03/27/16 08:49 GRAM STAIN RESULT NO WBC'S OR BACTERIA OBSERVED NRG Bacteria identification in wound by culture - 03/27/16 08:49 Bacteria identification in wound by culture [id number] NRG FREE TEXT EXTERNAL SENSITIVITY [place]PORTED AT 1104, 03-30-16 NRG QUANTITY OF GROWTH Scant Growth NRG Bacterial susceptibility panel - 03/27/16 08:49 Gentamicin susceptibility test by minimum inhibitory concentration S NRG Erythromycin susceptibility test by minimum inhibitory concentration >= NRG Vancomycin susceptibility test by minimum inhibitory concentration 1 NRG Ampicillin susceptibility test by minimum inhibitory concentration < = NRG Linezolid susceptibility test by minimum inhibitory concentration 1 NRG Erythrocyte sedimentation rate by westergren method - 03/27/16 10:15 Erythrocyte sedimentation rate by westergren method 88 mm 0-30 Comprehensive metabolic panel - 03/27/16 10:15 Serum or plasma sodium measurement (moles/volume) 137 mmol/L 135-145 Serum or plasma potassium measurement (moles/volume) 3.7 mmol/L 3.6-5.0 Serum or plasma chloride measurement (moles/volume) 93 mmol/L 98-107 Carbon dioxide 31 mmol/L 21-32 Serum or plasma anion gap determination (moles/volume) 13 mmol/L 5-14 Serum or plasma urea nitrogen measurement (mass/volume) 23 mg/dL 7-18 Serum or plasma creatinine measurement (mass/volume) 4.14 mg/dL 0.60-1.30 Serum or plasma urea nitrogen/creatinine mass ratio 6 NRG Serum or plasma creatinine measurement with calculation of estimated glomerular filtration rate 11 NRG Serum or plasma glucose measurement (mass/volume) 159 mg/dL 70-105 Serum or plasma calcium measurement (mass/volume) 10.2 mg/dL 8.5-10.1 Serum or plasma total bilirubin measurement (mass/volume) 0.4 mg/dL 0.1-1.0 Serum or plasma alkaline phosphatase measurement (enzymatic activity/volume) 73 U/L 40-136 Serum or plasma aspartate aminotransferase measurement (enzymatic activity/ volume) 8 U/L 5-34 Serum or plasma alanine aminotransferase measurement (enzymatic activity/volume ) 8 U/L 0-55 Serum or plasma protein measurement (mass/volume) 7.4 g/dL 6.4-8.2 Serum or plasma albumin measurement (mass/volume) 3.6 g/dL 3.2-4.5 Serum or plasma lithium measurement (moles/volume) - 03/27/16 10:15 Serum or plasma prealbumin measurement (mass/volume) 20.3 mg/dL 18.0-35.7 Bacteria identification in isolate by anaerobe culture - 04/03/16 08:43 QUANTITY OF GROWTH Scant Growth NR Bacteria identification in isolate by anaerobe culture [id number] NR Gram stain microscopy - 04/03/16 08:43 Bacteria identification in wound by culture - 04/03/16 08:43 Bacteria identification in wound by culture [id number] NR FREE TEXT EXTERNAL PLEASE NOTIFY MICRO AT EXT [address] NRG QUANTITY OF GROWTH Scant Growth NR FREE TEXT ENTRY 2 REQUESTS A SENSITIVITY ON THIS ISOLATE. NR Bacterial susceptibility panel - 04/03/16 08:43 Gentamicin susceptibility test by minimum inhibitory concentration S NRG Erythromycin susceptibility test by minimum inhibitory concentration >= NRG Vancomycin susceptibility test by minimum inhibitory concentration 1 NRG Ampicillin susceptibility test by minimum inhibitory concentration < = NRG Linezolid susceptibility test by minimum inhibitory concentration 2 NR Bacterial susceptibility panel - 04/03/16 08:43 Gentamicin susceptibility test by minimum inhibitory concentration S NRG Erythromycin susceptibility test by minimum inhibitory concentration >= NRG Vancomycin susceptibility test by minimum inhibitory concentration > = NRG Ampicillin susceptibility test by minimum inhibitory concentration > = NRG Linezolid susceptibility test by minimum inhibitory concentration 2 NRG Fungus culture - 04/03/16 08:43 Fungus culture NG NRG Methicillin resistant Staphylococcus aureus (MRSA) screening culture - 10:10 Methicillin resistant Staphylococcus aureus (MRSA) screening culture NEG NRG PT panel in platelet poor plasma by coagulation assay - 06/01/16 12:00 Prothrombin time (PT) in platelet poor plasma by coagulation assay 13.9 s 12.2-14.7 INR in platelet poor plasma or blood by coagulation assay 1.1 0.8-1.4 Bacteria identification in isolate by anaerobe culture - 06/01/16 13:20 Bacteria identification in isolate by anaerobe culture NG NRG Gram stain microscopy - 06/01/16 13:20 GRAM STAIN RESULT NO WBC'S OR BACTERIA OBSERVED NRG Bacteria identification in wound by culture - 06/01/16 13:20 Bacteria identification in wound by culture NG NRG Bacteria identification in isolate by anaerobe culture - 06/19/16 08:38 Bacteria identification in isolate by anaerobe culture NOANA NRG Gram stain microscopy - 06/19/16 08:38 GRAM STAIN RESULT NO WBC'S OR BACTERIA OBSERVED NRG Bacteria identification in wound by culture - 06/19/16 08:38 Bacteria identification in wound by culture [id number] NRG FREE TEXT EXTERNAL (2 COLONY TYPES) NRG QUANTITY OF GROWTH Scant Growth NRG PT panel in platelet poor plasma by coagulation assay - 07/17/18 11:00 Prothrombin time (PT) in platelet poor plasma by coagulation assay 21.3 s 12.2-14.7 INR in platelet poor plasma or blood by coagulation assay 1.8 0.8-1.4 PT panel in platelet poor plasma by coagulation assay - 08/14/18 10:40 Prothrombin time (PT) in platelet poor plasma by coagulation assay 14.6 s 12.2-14.7 INR in platelet poor plasma or blood by coagulation assay 1.1 0.8-1.4 PT panel in platelet poor plasma by coagulation assay - 08/21/18 00:00 Prothrombin time (PT) in platelet poor plasma by coagulation assay 18.2 s 12.2-14.7 INR in platelet poor plasma or blood by coagulation assay 1.5 0.8-1.4 Encounters ACCT No. Visit Date/Time Discharge Status Pt. Type Provider Facility Loc./Unit Complaint [id number] 08/26/2018 08:45:00 08/26/2018 23:59:59 [facility] Outpatient [facility] [id number] 08/28/2018 05:39:00 08/28/2018 23:59:59 CLS Outpatient ALISHA DPARSLAN Sanchez Q [facility] PREOP AMPUTATION LEFT SECOND TOE [id number] 08/26/2018 11:38:00 08/26/2018 13:51:00 DIS Outpatient ALISHA DPM ARSLAN Q [facility] PREOP OSTEOMYELITIS [id number] 08/21/2018 16:33:00 08/21/2018 23:59:59 CLS Outpatient SELF MEGHNA PERALTA [facility] LAB FS [id number] 08/14/2018 10:17:00 08/14/2018 23:59:59 CLS Outpatient SELF MEGHNA PERALTA [facility] LAB FS NURSING HOME USE ANTICOAGULANTS [id number] 08/01/2018 06:35:00 08/01/2018 23:59:59 CLS Outpatient CHAYO HERMAN MD [facility] CARD AF [id number] 07/31/2018 09:49:00 07/31/2018 23:59:59 CLS Outpatient CHAYO HERMAN MD [facility] CARD AF [id number] 07/17/2018 11:18:00 07/17/2018 23:59:59 CLS Outpatient SELF MEGHNA PERALTA [facility] LAB FS PT-INR [id number] 05/10/2017 00:24:00 05/10/2017 23:59:59 CLS Preadmit LAURIE RICHARDS MD [facility] ONC [id number] 04/26/2017 09:33:00 05/09/2017 00:01:00 DIS Outpatient LAURIE RICHARDS MD [facility] ONC [id number] 01/22/2017 13:56:00 01/22/2017 23:59:59 CLS Outpatient OTHER, UNLISTED [facility] RAD RECURRENT SQUAMOUS CELL CARCINOMA OF [place] [id number] 01/11/2017 10:15:00 01/19/2017 00:01:00 DIS Outpatient LAURIE RICHARDS MD [facility] ONC [id number] 07/24/2016 00:10:00 07/24/2016 23:59:59 CLS Preadmit JEREMIAH BENTLEY MD [facility] WOUNDCARE [id number] 07/17/2016 08:10:00 07/23/2016 00:01:00 DIS Outpatient JEREMIAH BENTLEY MD [facility] WOUNDCARE [id number] 06/01/2016 11:18:00 06/01/2016 14:55:00 DIS Outpatient ALISHA DPM, ARSLAN Q [facility] OM LT TOE [id number] 05/31/2016 09:50:00 05/31/2016 10:15:00 DIS Outpatient ALISHA DPM, ARSLAN Q [facility] PREOP OM LT 3RD TOE [id number] 04/19/2016 08:01:00 04/23/2016 00:01:00 DIS Outpatient JEREMIAH BENTLEY MD [facility] WOUNDCARE [id number] 03/30/2016 13:07:00 03/30/2016 23:59:59 CLS Outpatient JEREMIAH BENTLEY MD [facility] RAD HX OF OSTEOMYELITIS OF COCCYX [id number] 03/27/2016 09:53:00 03/27/2016 23:59:59 CLS Outpatient JEREMIAH BENTLEY MD [facility] RAD [id number] 01/17/2016 08:11:00 01/23/2016 08:51:00 DIS Outpatient JEREMIAH BENTLEY MD [facility] WOUNDCARE [id number] 12/22/2015 13:13:00 12/22/2015 23:59:59 CLS Outpatient JEREMIAH BENTLEY MD [facility] RAD OPEN WOUND OF SACRAL AREA W/EXPOSED SACRAL BONE [id number] 11/17/2015 07:41:00 11/17/2015 13:45:00 DIS Outpatient BOOGIE CORDOVA MD [facility] OPEN WOUND COCCYX [id number] 11/14/2015 11:43:00 11/14/2015 12:30:00 DIS Outpatient BOOGIE CORDOVA MD [facility] PREOP OPEN WOUND COCCYX [id number] 11/02/2015 12:48:00 11/02/2015 23:59:59 CLS Outpatient JEREMIAH BENTLEY MD [facility] RAD OSTEOMYELITIS COCCYX [id number] 11/02/2015 14:17:00 11/02/2015 16:00:00 DIS Outpatient JEREMIAH BENTLEY MD [facility] WOUNDCARE [id number] 08/29/2015 12:47:00 08/29/2015 00:01:00 DIS Outpatient JEREMIAH BENTLEY MD [facility] WOUNDCARE [id number] 07/28/2015 09:03:00 07/28/2015 23:59:59 CLS Outpatient JEREMIAH BENTLEY MD [facility] RAD PELVIC ULCERS [id number] 07/13/2015 13:01:00 07/13/2015 23:59:59 CLS Outpatient JEREMIAH BENTLEY MD [facility] RAD CHRONIC PRESSURE ULCER, PRESSURE ULCER OF SACRAL RE [id number] 03/29/2015 08:18:00 03/31/2015 15:00:00 DIS Outpatient JEREMIAH BENTLEY MD [facility] WOUNDCARE [id number] 02/17/2015 07:51:00 02/17/2015 23:59:59 CLS Outpatient JEREMIAH BENTLEY MD [facility] RAD HX OF SACRAL OSTEOMYLITIS , STAGE 4 PRESSURE ULCER [id number] 01/18/2015 08:09:00 01/19/2015 00:01:00 DIS Outpatient JEREMIAH BENTLEY MD [facility] WOUNDCARE [id number] 12/21/2014 08:02:00 12/26/2014 00:01:00 DIS Outpatient JEREMIAH BENTLEY MD [facility] WOUNDCARE [id number] 09/29/2014 09:55:00 09/29/2014 23:59:59 CLS Outpatient JEREMIAH BENTLEY MD [facility] RAD 3RD TOE ULCER [id number] 02/09/2014 12:27:00 02/10/2014 16:05:00 DIS Inpatient JAMAR ROMERO MD [facility] IRF UNK; SACRAL DECUBITUS ULCER [id number] 09/01/2018 13:00:00 PEN Preadmit ALISHA CAGLE, ARSLAN Quintero [facility] TOE AMPUTATION
[2018-09-01] MEDS ORDERED: LACTATED RINGERS 1,000 ML IV PRN (06:13)
[2018-09-01] MEDS ORDERED: VANCOMYCIN INJECTION 1,000 MG in NS (IVPB) 250 ML IV ONE (06:15)
[2018-09-01] MEDS ORDERED: LIDOCAINE 1% INJ 20 ML 20 ML VIAL ONE (06:45)
[2018-09-01] MEDS ORDERED: BUPIVACAINE 0.5% 30 ML (SENSORCAINE) VIAL ONE (06:45)
[2018-09-01] MEDS ORDERED: CATHETER FLUSH 10 ML SYR IV PRN (06:45)
[2018-09-01] MEDS ORDERED: DEXAMETHASONE 10 MG/ML (DECADRON) 1 ML VIAL ONE (06:45)
[2018-09-01] MEDS ORDERED: fentaNYL INJECTION 100 MCG/2 ML AMP ONE (06:49)
[2018-09-01] MEDS ORDERED: MIDAZOLAM 2 MG/2 ML (VERSED) VIAL ONE (06:49)
[2018-09-01] MEDS ORDERED: proPOfol 200 MG/20 ML (DIPRIVAN) VIAL IV ONE (06:49)
[2018-09-01 07:01] LABS: CALCIUM 10.2 MG/DL (8.5-10.1); CREATININE SERUM 5.03 MG/DL (0.60-1.30); POTASSIUM 4.2 MMOL/L (3.6-5.0)
--- NOTE | 2018-09-01 07:14 | Progress Note-Pre Operative ---
Pre-Operative Progress Note H&P Reviewed The H&P was reviewed, patient examined and no changes noted. Date Seen by Provider: September 01, 2018 Time Seen by Provider: 07:14 Date H&P Reviewed: September 01, 2018 Time H&P Reviewed: 07:14 Pre-Operative Diagnosis: Osteomyelitis left 2nd toe ARSLAN BRITO DPM September 01, 2018 07:14
[2018-09-01] MEDS ORDERED: LIDOCAINE PF 2% 5 ML (XYLOCAINE) VIAL ONE (08:08)
[2018-09-01] MEDS ORDERED: LACTATED RINGERS 1,000 ML IV SCH (08:14)
--- NOTE | 2018-09-01 08:14 | Progress Note-Post Operative ---
Post-Operative Progess Note Surgeon (s)/Clothes Ironer (s) Surgeon ARSLAN BRITO DPM Clothes Ironer: NONE Pre-Operative Diagnosis Osteomyelitis left 2nd toe Post-Operative Diagnosis Same Procedure & Operative Findings Date of Procedure 09/01/18 Procedure Performed/Findings Partial Amputation of the left 2nd toe Anesthesia Type MAC Estimated Blood Loss Estimated blood loss (mL): Minimal Specimens/Packing Specimens Removed Left 2nd toe Packing: none ARSLAN BRITO DPM September 01, 2018 08:14
[2018-09-01] MEDS ORDERED: HYDROcodone/APAP 5 MG/325 MG (LORTAB) TAB PO PRN (08:15)
[2018-09-01] MEDS ORDERED: ACHD5005 PO (08:18)
[2018-09-01] MEDS ORDERED: HYDROmorphone 2 MG/ML VIAL (DILAUDID) IV ONE (08:30)
[2018-09-01] MEDS: ONDANSETRON 4 MG/2 ML (SDV) Z0FRAN IVP PRN (09:01)
--- NOTE | 2018-09-01 13:53 | OPERATIVE REPORT ---
DATE OF SERVICE: 09/01/2018 SURGEON: Olivia Brito DPM PREOPERATIVE DIAGNOSIS: Osteomyelitis, left second toe. POSTOPERATIVE DIAGNOSIS: Osteomyelitis, left second toe. PROCEDURE: Partial amputation, left second toe. WOUND CLASS: Contaminated. ANESTHESIA: Monitored anesthesia care. HEMOSTASIS: None. DESCRIPTION OF PROCEDURE: The patient was brought back to the operating table, placed in a secure supine position. The left second toe was anesthetized utilizing 10 mL of 1:1 mixture of 0.5% Marcaine and 2% lidocaine, injected in a digital block to the left second toe. Appropriate time out was performed. Pneumatic ankle tourniquet was placed on the left lower extremity over several layers padding, but it was never used during the procedure. The left foot was prepped and draped in normal sterile manner. The left foot was then dressed to the left second toe, where an incision was created overlying the proximal interphalangeal joint area from medial to lateral over the dorsal aspect of the toe down to bone. Next, the plantar flap was created starting and ending at the same beginning at any point, but extending to the plantar aspect of the middle phalanx area. The toe was disarticulated at the proximal interphalangeal joint. A rongeur was taken to sample of the distal phalanx and that was sent for culture and sensitivity. The rest of the digit that was amputated was sent for gross and microscopic evaluation. Utilizing a bone cutter, the head of the proximal phalanx was removed from the proximal phalanx of the left second toe and this was sent in formalin for gross and microscopic evaluation. It did not appear to have any pathological changes at this time. The remainder of the wound was flushed with copious amounts of normal saline after which, a swab culture was taken of the amputation site. Closure was then performed with 4-0 Prolene in a simple interrupted type stitch. Some bleeding was appreciated throughout the procedure, but it was not profuse. Postoperative dressing consisted of Betadine soaked Adaptic, sterile 4 x 4, sterile Kerlix all secured with a Coban wrap. The patient tolerated the anesthesia and procedure well and was transported from the operating room to the recovery area with vital signs stable and vascular status intact to all the remainder digits of the left foot. She is to follow up in my office in 10 days' period of time or sooner if necessary. She is to continue with her oral antibiotic as well. Job ID: [id number] DocumentID: [id number] Dictated Date: 09/01/2018 08:23:46 Customer Operations Representative Date: 09/01/2018 13:53:19 Dictated By: OLIVIA BRITO DPM
--- NOTE | 2018-09-01 14:52 | Anesthesia-General Post-Op ---
MAC Patient Condition Mental Status/LOC: Same as Preop Cardiovascular: Satisfactory Nausea/Vomiting: Absent Respiratory: Satisfactory Pain: Controlled Complications: Absent Post Op Complications Complications None Follow Up Care/Instructions Patient Instructions None needed. Anesthesiology Discharge Order Discharge Order Patient was seen after the procedure and she was doing well, no complaints, stable vital signs, no apparent adverse anesthesia problems. CLAUDINE OLIVAS DO September 01, 2018 14:52
== END 2018-09-01 09:35 | disposition home or self-care (01) ==
LOC: SDC 05:50
PROVIDERS: ATTEND Podiatrist Foot & Ankle Surgery
DX: M86.9 Osteomyelitis, unspecified (principal); I25.2 Old myocardial infarction; I12.0 Hypertensive chronic kidney disease with stage 5 chronic kidney disease or end stage renal disease; N18.6 End stage renal disease; Z99.2 Dependence on renal dialysis; I73.9 Peripheral vascular disease, unspecified; I25.119 Atherosclerotic heart disease of native coronary artery with unspecified angina pectoris; I48.0 Paroxysmal atrial fibrillation; I25.5 Ischemic cardiomyopathy; K21.9 Gastro-esophageal reflux disease without esophagitis; N31.9 Neuromuscular dysfunction of bladder, unspecified; F17.210 Nicotine dependence, cigarettes, uncomplicated; Z79.899 Other long term (current) drug therapy; Z79.01 Long term (current) use of anticoagulants; Z95.1 Presence of aortocoronary bypass graft; Z11.2 Encounter for screening for other bacterial diseases
CPT/HCPCS: 36415; 80048; 87070; 87075; 87077; 87081; 87101; 87186; 87205

== ENCOUNTER 2018-09-03 21:14 | Emergency (ER) | payer MEDICARE ==
[~2018-09-03] VITALS: Ht 157.5 cm; Wt 90.7 kg
--- OUTSIDE RECORDS SUMMARY | 2018-09-03 21:19 | XMS REPORT | Encounter Summary ---
Author Author [facility] Organization [facility] Address Unknown Phone Unavailable Care Team Providers Care Offset Assistant Press Operator Name Role Phone Self, Damon PERALTA PCP Unavailable Reason for Visit * Reason Comments Medication Refill Encounter Details Care Team Description Date Type Department Romeo Dillon MD [address] [place] [address] 07/07/[address] [facility] [address] [place] [address] Social History Date Tobacco Use [...]
--- OUTSIDE RECORDS SUMMARY | 2018-09-03 21:19 | XMS REPORT | Clinical Summary ---
Author Author [facility] Organization [facility] Address Unknown Phone Unavailable Care Team Providers Care Security Architect Name Role Phone Self, Damon PERALTA PCP Unavailable Source Comments Some departments are not documenting in the electronic medical record. If you do not see the information that you expected, contact Release of Information in the Health Information Management department at [phone] for further assistance in locating additional records.[facility] Allergies No Known Allergies Medications End Date [...] Overview: Added automatically from request for surgery [id number] Late effect of radiation 05/08/2017 Complex wound of head 05/08/2017 Squamous cell carcinoma, face 12/19/2016 Overview: Added automatically from request for surgery [id number] Squamous carcinoma 12/06/2016 Overview: Added automatically from request for surgery [id number] Decubitus ulcer of right buttock, stage 3 11/07/2016 Cigarette smoker 11/07/2016 Acute respiratory failure with hypoxia 08/05/2016 Coronary artery disease involving [place] coronary artery of [place] heart without angina pectoris Essential hypertension 08/03/2016 [...] Romeo Dillon MD 07/07/2018 Refill Plastic Surgery from Last 3 Months Immunizations [...] / Lot Implanted Type Area Manufactur er [id number] 10/19/2017 [id number] / . / [id number] Kit 70cm 4fr 18ga 1 Lumen Nitinol Right: Arm CR Guidewire Radstic - [id number] BARD:ACCES Implanted: Qty: 1 on 08/06/2016 by Bon Parmar MD 2018 [id number] / [id number] / [id number] Dressing Biological 2x2in Integra N/A: Forehead INTEGRA: Bovine Collagen - [id number] EXTREMITY Implanted: Qty: 1 on 05/29/2017 by Romeo Coleman MD T Results Not on filefrom Last 3 Months Insurance Type Payer Benefit Subscriber ID Effective Phone Address Plan / Dates Group Medicare MEDICARE MEDICARE xxxxxxxxxx 2013-P PART A AND resent B Medicare BCBS [place] BCBS xxxxxxxxxxxx 2016-P SUPPLEMENT resent [facility] xxxxxxxxx 2016-P ME resent [facility] ([place]) [place] [address] Advance Directives Patient has advance care planning documents, and code status on file. For more information, please contact: [facility] [address] [place] [address] Date Inactivated Comments Code Status Date Activated [...]
--- OUTSIDE RECORDS SUMMARY | 2018-09-03 21:22 | XMS REPORT | Continuity of Care Document ---
Demographics x Preferred Language Unknown Marital Status Unknown Voodoo Affiliation Unknown Race Unknown Ethnic Group Unknown Author Organization Unknown Address Unknown Allergies Active Description Code Type Severity Reaction Onset Reported/Identified Relationship to Patient Clinical Status Yes No Known Drug Allergies [id number] Drug Allergy Unknown N/A 02/09/2014 Medications There is no data. 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, STAGE 4 08/10/2015 MC PERALTA, JEREMIAH Phillips Ot L97.529 NON-PRESSURE CHRONIC ULCER OTH PRT LEFT 08/10/2015 MC PERALTA, JEREMIAH Phillips Ot N18.6 END STAGE RENAL DISEASE 08/10/2015 MC PERALTA, JEREMIAH Phillips Ot N39.42 INCONTINENCE WITHOUT SENSORY AWARENESS 08/16/2015 MC PERALTA, JEREMIAH Phillips Ot 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 [facility] 08/16/2015 JEREMIAH BENTLEY MD, Ot 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, STAGE 4 08/16/2015 JEREMIAH BENTLEY MD, Ot L97.529 NON-PRESSURE CHRONIC ULCER OTH PRT LEFT 08/16/2015 JEREMIAH EBNTLEY MD, Ot N18.6 END STAGE RENAL DISEASE 08/16/2015 JEREMIAH BENTLEY MD, Ot N39.42 INCONTINENCE WITHOUT SENSORY AWARENESS 08/17/2015 JEREMIAH BENTLEY MD, Ot 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 [facility] 08/17/2015 JEREMIAH BENTLEY MD, Ot 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, STAGE 4 08/17/2015 JEREMIAH BENTLEY MD, Ot L97.529 NON-PRESSURE CHRONIC ULCER OTH PRT LEFT 08/17/2015 JEREMIAH BENTLEY MD, Ot N18.6 END STAGE RENAL DISEASE 08/17/2015 JEREMIAH BENTLEY MD, Ot N39.42 INCONTINENCE WITHOUT SENSORY AWARENESS 08/24/2015 JEREMIAH BENTLEY MD, Ot 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 [facility] 08/24/2015 JEREMIAH BENTLEY MD, Ot 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, STAGE 4 08/24/2015 JEREMIAH BENTLEY MD, Ot L97.529 NON-PRESSURE CHRONIC ULCER OTH PRT LEFT 08/24/2015 JEREMIAH BENTLEY MD, Ot N18.6 END STAGE RENAL DISEASE 08/24/2015 JEREMIAH BENTLEY MD, Ot N39.42 INCONTINENCE WITHOUT SENSORY AWARENESS 08/29/2015 JEREMIAH BENTLEY MD, Ot 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 [facility] 08/29/2015 JEREMIAH BENTLEY MD, Ot L89.154 [...] 08/31/2015 JEREMIAH BENTLEY MD, Ot 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 [facility] 08/31/2015 JEREMIAH BENTLEY MD, Ot 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, STAGE 4 08/31/2015 JEREMIAH BENTLEY MD, Ot L97.529 NON-PRESSURE CHRONIC ULCER OTH PRT LEFT 08/31/2015 JEREMIAH BENTLEY MD, Ot N18.6 END STAGE RENAL DISEASE 08/31/2015 JEREMIAH BENTLEY MD, Ot N39.42 INCONTINENCE WITHOUT SENSORY AWARENESS 08/31/2015 JEREIMAH BENTLEY MD, Ot 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 [facility] 08/31/2015 JEREMIAH BENTLEY MD, Ot 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, STAGE 4 08/31/2015 JEREMIAH BENTLEY MD, Ot L97.529 NON-PRESSURE CHRONIC ULCER OTH PRT LEFT 08/31/2015 JEREMIAH BENTLEY MD, Ot N18.6 END STAGE RENAL DISEASE 08/31/2015 JEREMIAH BENTLEY MD, Ot N39.42 INCONTINENCE WITHOUT SENSORY AWARENESS 10/15/2015 JEREMIAH BENTLEY MD, Ot 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 [facility] 10/15/2015 JEREMIAH BENTLEY MD, Ot 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, STAGE 4 10/15/2015 JEREMIAH BENTLEY MD, Ot L97.529 NON-PRESSURE CHRONIC ULCER OTH PRT LEFT 10/15/2015 JEREMIAH BENTLEY MD, Ot N18.6 END STAGE RENAL DISEASE 10/15/2015 JEREMIAH BENTLEY MD, Ot N39.42 INCONTINENCE WITHOUT SENSORY AWARENESS 10/27/2015 JEREMIAH BENTLEY MD, Ot 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 [facility] 10/27/2015 JEREMIAH BENTLEY MD, Ot 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, STAGE 4 10/27/2015 JEREMIAH BENTLEY MD, Ot L97.529 NON-PRESSURE CHRONIC ULCER OTH PRT LEFT 10/27/2015 JEREMIAH BENTLEY MD, Ot N18.6 END STAGE RENAL DISEASE 10/27/2015 JEREMIAH BENTLEY MD, Ot N39.42 INCONTINENCE WITHOUT SENSORY AWARENESS 11/02/2015 JEREMIAH BENTLEY MD, Ot 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 [facility] 11/02/2015 JEREMIAH BENTLEY MD, Ot L89.154 [...] 11/03/2015 JEREMIAH BENTLEY MD, Ot 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 [facility] 11/03/2015 [...] Y99.8 OTHER EXTERNAL CAUSE STATUS 11/15/2015 BOOGIE CRODOVA MD, Ot Z01.818 ENCOUNTER FOR OTHER PREPROCEDURAL EXAMIN 11/15/2015 BOOGIE CORDOVA MD, Ot Z11.2 ENCOUNTER FOR SCREENING FOR OTHER BACTER 11/17/2015 BOOGIE CORDOVA MD, Ot F17.210 NICOTINE DEPENDENCE, CIGARETTES, UNCOMPL 11/17/2015 BOOGIE CORDOVA MD, Ot G62.9 POLYNEUROPATHY, UNSPECIFIED 11/17/2015 BOOGIE CORDOVA MD, Ot I25.10 ATHSCL HEART DISEASE OF [place] CORONARY 11/17/2015 BOOGIE CORDOVA MD Ot I73.9 PERIPHERAL VASCULAR DISEASE, UNSPECIFIED 11/17/2015 BOOGIE CORDOVA MD Ot 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, STAGE 4 11/17/2015 BOOGIE CORDOVA MD Ot N19 UNSPECIFIED KIDNEY FAILURE 11/17/2015 BOOGIE CORDOVA MD Ot Z79.01 SNF (CURRENT) USE OF ANTICOAGULANT 11/17/2015 BOOGIE CORDOVA MD Ot Z79.899 OTHER SNF (CURRENT) DRUG THERAPY 11/17/2015 BOOGIE CORDOVA MD Ot Z95.1 PRESENCE OF AORTOCORONARY BYPASS GRAFT 11/18/2015 BOOGIE CORDOVA MD, Ot F17.210 NICOTINE DEPENDENCE, CIGARETTES, UNCOMPL 11/18/2015 BOOGIE CORDOVA MD, Ot G62.9 POLYNEUROPATHY, UNSPECIFIED 11/18/2015 BOOGIE CORDOVA MD Ot I25.10 ATHSCL HEART DISEASE OF [place] CORONARY 11/18/2015 BOOGIE CORDOVA MD Ot I73.9 PERIPHERAL VASCULAR DISEASE, UNSPECIFIED 11/18/2015 BOOGIE CORDOVA MD Ot 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, STAGE 4 11/18/2015 BOOGIE CORDOVA MD Ot N19 UNSPECIFIED KIDNEY FAILURE 11/18/2015 BOOGIE CORDOVA MD Ot Z79.01 SNF (CURRENT) USE OF ANTICOAGULANT 11/18/2015 BOOGIE CORDOVA MD Ot Z79.899 OTHER SNF (CURRENT) DRUG THERAPY 11/18/2015 BOOGIE CORDOVA MD, [...] 03/27/2016 JEREMIAH BENTLEY MD, Ot 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 [facility] 03/27/2016 JEREMIAH BENTLEY MD, Ot 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, STAGE 4 03/27/2016 JEREMIAH BENTLEY MD, Ot L97.529 NON-PRESSURE CHRONIC ULCER OTH PRT LEFT 03/27/2016 JEREMIAH BENTLEY MD, Ot N18.6 END STAGE RENAL DISEASE 03/27/2016 JEREMIAH BENTLEY MD, Ot N39.42 INCONTINENCE WITHOUT SENSORY AWARENESS 03/27/2016 JEREMIAH BENTLEY MD, Ot 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 [facility] 03/27/2016 JEREMIAH BENTLEY MD, Ot L89.154 [...] NON-PRESSURE CHRONIC ULCER OF BACK WITH 04/24/2016 JERMEIAH BENTLEY MD, Ot N18.6 END STAGE RENAL [...] 06/01/2016 ALISHA DPM, ARSLAN Q Ot Z79.01 SNF (CURRENT) USE OF ANTICOAGULANT 06/04/2016 ALISHA DPM, ARSLAN Q Ot M86.672 OTHER CHRONIC OSTEOMYELITIS, LEFT ANKLE 06/04/2016 ALISHA DPM, ARSLAN Q Ot Z79.01 SNF (CURRENT) USE OF ANTICOAGULANT 06/18/2016 JEREMIAH BENTLEY [...] 06/27/2016 ALISHA DPM, ARSLAN Q Ot Z79.01 SNF (CURRENT) USE OF ANTICOAGULANT 07/23/2016 JEREMIAH BENTLEY [...] UNSPE 07/18/2018 MEGHNA CASTRO MD Ot Z79.01 SNF (CURRENT) USE OF ANTICOAGULANT 07/31/2018 JEREMIAH BENTLEY MD Ot 707.15 ULCER OF OTHER PART OF FOOT 07/31/2018 JEREMIAH BENTLEY MD Ot 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, STAGE 4 07/31/2018 JEREMIAH BENTLEY MD Ot M70.88 OTH SOFT TISSUE DISORDERS RELATED TO USE 07/31/2018 JEREMIAH BENTLEY MD Ot 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 [facility] 07/31/2018 JEREMIAH BENTLEY MD Ot 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, STAGE 4 07/31/2018 JEREMIAH BENTLEY MD Ot L97.529 NON-PRESSURE CHRONIC ULCER OTH PRT LEFT 07/31/2018 JEREMIAH BENTLEY MD Ot N18.6 END STAGE RENAL DISEASE 07/31/2018 JEREMIAH BENTLEY MD, Ot N39.42 INCONTINENCE WITHOUT SENSORY AWARENESS 07/31/2018 JEREMIAH BENTLEY MD Ot 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 [facility] 07/31/2018 JEREMIAH BENTLEY MD Ot 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, STAGE 4 07/31/2018 JEREMIAH BENTLEY MD, Ot L97.529 NON-PRESSURE CHRONIC ULCER OTH PRT LEFT 07/31/2018 JEREMIAH BENTLEY MD Ot N18.6 END STAGE RENAL DISEASE 07/31/2018 JEREMIAH BENTLYE MD Ot N39.42 INCONTINENCE WITHOUT SENSORY AWARENESS [...] 07/31/2018 JEREMIAH BENTLEY MD Ot 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 W [facility] 07/31/2018 JEREMIAH BENTLEY MD, Ot 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, STAGE 4 07/31/2018 JERMEIAH BENTLEY MD, Ot L97.529 NON-PRESSURE CHRONIC ULCER OTH PRT LEFT 07/31/2018 JEREMIAH BENTLEY MD, Ot N18.6 END STAGE RENAL DISEASE 07/31/2018 JEREMIAH BENTLEY MD, Ot N39.42 INCONTINENCE WITHOUT SENSORY AWARENESS 07/31/2018 JEREMIAH BENTLEY MD, Ot 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 W [facility] 07/31/2018 [...] MON 08/01/2018 MEGHNA CASTRO MD Ot 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 08/01/2018 CHAYO HERMAN [...] MON 08/15/2018 MEGHNA CASTRO MD Ot Z79.01 SNF (CURRENT) USE OF ANTICOAGULANT 08/19/2018 MEGHNA CASTRO MD Ot Z51.81 ENCOUNTER FOR THERAPEUTIC DRUG LEVEL MON 08/19/2018 MEGHNA CASTRO MD Ot Z79.01 SNF (CURRENT) USE OF ANTICOAGULANT 08/21/2018 CHAYO HERMAN [...] MD Ot I25.10 ATHSCL HEART DISEASE OF [place] CORONARY 08/25/2018 MEGHNA CASTRO MD Ot I48.0 PAROXYSMAL ATRIAL FIBRILLATION 08/25/2018 MEGHNA CASTRO MD Ot I73.9 PERIPHERAL VASCULAR DISEASE, UNSPECIFIED 08/25/2018 MEGHNA CASTRO MD Ot N18.6 END STAGE RENAL DISEASE 08/25/2018 MEGHNA CASTRO MD Ot 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 Results Test [...] Bacteria identification in isolate by anaerobe culture [id number] NRG Gram stain microscopy - 01/24/16 08:39 GRAM STAIN RESULT NO WBC'S OR BACTERIA OBSERVED NRG Bacteria identification in wound by culture - 01/24/16 08:39 Bacteria identification in wound by culture [id number] NR FREE TEXT EXTERNAL SENSITIVITIES REPORTED AT 0756, 10-6-16 NRG QUANTITY OF GROWTH Scant Growth NRG [...] 08:30 Bacteria identification in wound by culture [id number] NRG FREE TEXT EXTERNAL SENSITIVITY REPORTED AT [...] Bacteria identification in isolate by anaerobe culture [id number] NRG Gram stain microscopy - 03/27/16 08:49 GRAM STAIN RESULT NO WBC'S OR BACTERIA OBSERVED NRG Bacteria identification in wound by culture - 03/27/16 08:49 Bacteria identification in wound by culture [id number] NRG FREE TEXT EXTERNAL SENSITIVITY REPORTED AT [...] 04/03/16 08:43 QUANTITY OF GROWTH Scant Growth NRG Bacteria identification in isolate by anaerobe culture [id number] [facility] Gram stain microscopy - 04/03/16 08:43 Bacteria identification in wound by culture - 04/03/16 08:43 Bacteria identification in wound by culture [id number] [facility] FREE TEXT EXTERNAL PLEASE NOTIFY MICRO AT EXT [address] NRG QUANTITY OF GROWTH Scant Growth NR FREE TEXT ENTRY 2 REQUESTS A SENSITIVITY ON THIS ISOLATE. [facility] Bacterial susceptibility panel - 04/03/16 08:43 Gentamicin [...] 08:38 Bacteria identification in wound by culture [id number] NRG FREE TEXT EXTERNAL (2 COLONY TYPES) [...] or blood by coagulation assay 1.5 0.8-1.4 Methicillin resistant Staphylococcus aureus (MRSA) screening culture - 06:23 Methicillin resistant Staphylococcus aureus (MRSA) screening culture NEG NRG Whole blood basic metabolic panel - 09/01/18 06:24 Serum or plasma sodium measurement (moles/volume) 136 mmol/L 135-145 Serum or plasma potassium measurement (moles/volume) 4.2 mmol/L 3.6-5.0 Serum or plasma chloride measurement (moles/volume) 100 mmol/L 98-107 Carbon dioxide 18 mmol/L 21-32 Serum or plasma anion gap determination (moles/volume) 18 mmol/L 5-14 Serum or plasma urea nitrogen measurement (mass/volume) 55 mg/dL 7-18 Serum or plasma creatinine measurement (mass/volume) 5.03 mg/dL 0.60-1.30 Serum or plasma urea nitrogen/creatinine mass ratio 11 NRG Serum or plasma creatinine measurement with calculation of estimated glomerular filtration rate 9 NRG Serum or plasma glucose measurement (mass/volume) 131 mg/dL 70-105 Serum or plasma calcium measurement (mass/volume) 10.2 mg/dL 8.5-10.1 Bacteria identification in isolate by anaerobe culture - 09/01/18 07:58 Bacteria identification in isolate by anaerobe culture NOANA NRG Gram stain microscopy - 09/01/18 07:58 Gram stain microscopy No bacteria seen NRG Bacteria identification in wound by culture - 09/01/18 07:58 Bacteria identification in wound by culture NG NRG C FUNGUS SPUTUM FLUID TISSUE - 09/01/18 07:58 FTX;REPORTABLE (FINAL REQUIRES 4 WEEKS) NRG FUNGUS EXAM CURRENT REPORT: NEGATIVE NRG Bacteria identification in isolate by anaerobe culture - 09/01/18 08:08 Bacteria identification in isolate by anaerobe culture NOANA NRG Gram stain microscopy - 09/01/18 08:08 Gram stain microscopy No bacteria seen NRG Bacteria identification in wound by culture - 09/01/18 08:08 Bacteria identification in wound by culture NG NRG C FUNGUS SPUTUM FLUID TISSUE - 09/01/18 08:08 QUANTITY OF GROWTH . NRG FTX;REPORTABLE (FINAL REQUIRES 4 WEEKS) NRG FUNGUS EXAM CURRENT REPORT: NEGATIVE NRG C FUNGUS SPUTUM FLUID TISSUE PROGRESS NRG Encounters ACCT No. Visit Date/Time Discharge Status Pt. Type Provider Facility Loc./Unit Complaint [id number] 08/26/2018 08:45:00 08/26/2018 23:59:59 CLS Outpatient [facility] [id number] 09/01/2018 05:50:00 09/01/2018 09:35:00 DIS Outpatient ALISHA DPM, ARSLAN Q [facility] SDC TOE AMPUTATION [id number] 08/28/2018 05:39:00 08/28/2018 23:59:59 CLS Outpatient ALISHA DPM, ARSLAN Q [facility] PREOP AMPUTATION LEFT SECOND TOE [id number] 08/26/2018 11:38:00 08/26/2018 13:51:00 DIS Outpatient ALISHA DPM, ARSLAN Q [facility] PREOP OSTEOMYELITIS [id number] 08/21/2018 16:33:00 08/21/2018 23:59:59 CLS Outpatient SELF MEGHNA PERALTA [facility] LAB FS Z48.817 [id number] 08/14/2018 10:17:00 08/14/2018 23:59:59 CLS Outpatient SELF MEGHNA PERALTA [facility] LAB FS NAVIGATION TEACHER USE ANTICOAGULANTS [id number] 08/01/2018 06:35:00 08/01/2018 23:59:59 CLS Outpatient CHAYO HERMAN MD [facility] CARD AF [id number] 07/31/2018 09:49:00 07/31/2018 23:59:59 CLS Outpatient CHAYO HERMAN MD [facility] CARD AF [id number] 07/17/2018 11:18:00 07/17/2018 23:59:59 CLS Outpatient SELF MEGHNA PERALTA [facility] LAB FS PT-INR [id number] 05/10/2017 00:24:00 05/10/2017 23:59:59 CLS Preadmit LAURIE RICHARDS MD [facility] ONC [id number] 04/26/2017 09:33:00 05/09/2017 00:01:00 DIS Outpatient LAURIE RICHARDS MD [facility] ONC [id number] 01/22/2017 13:56:00 01/22/2017 23:59:59 CLS Outpatient OTHER, UNLISTED [facility] RAD RECURRENT SQUAMOUS CELL CARCINOMA OF [place] [id number] 01/11/2017 10:15:00 01/19/2017 00:01:00 DIS Outpatient LAURIE RICHARDS MD [facility] ONC [id number] 07/24/2016 00:10:00 07/24/2016 23:59:59 CLS Preadmit JEREMIAH BENTLEY MD [facility] WOUNDCARE [id number] 07/17/2016 08:10:00 07/23/2016 00:01:00 DIS Outpatient JEREMIAH BENTLEY MD [facility] WOUNDCARE [id number] 06/01/2016 11:18:00 06/01/2016 14:55:00 DIS Outpatient ARSLAN BRITO DPM [facility] OM LT TOE [id number] 05/31/2016 09:50:00 05/31/2016 10:15:00 DIS Outpatient ARSLAN BRITO DPM [facility] PREOP OM LT 3RD TOE [id number] 04/19/2016 08:01:00 04/23/2016 00:01:00 DIS Outpatient JEREMIAH BENTLEY MD [facility] WOUNDCARE [id number] 03/30/2016 13:07:00 03/30/2016 23:59:59 CLS Outpatient JEREMIAH BENTLEY MD [facility] RAD HX OF OSTEOMYELITIS OF COCCYX [id number] 03/27/2016 09:53:00 03/27/2016 23:59:59 CLS Outpatient JEREMIAH BENTLEY MD [facility] RAD L98.423 [id number] 01/17/2016 08:11:00 01/23/2016 08:51:00 DIS Outpatient JEREMIAH BENTLEY MD [facility] WOUNDCARE [id number] 12/22/2015 13:13:00 12/22/2015 23:59:59 CLS Outpatient JEREMIAH BENTLEY MD [facility] RAD OPEN WOUND OF SACRAL AREA W/EXPOSED SACRAL BONE [id number] 11/17/2015 07:41:00 11/17/2015 13:45:00 DIS Outpatient BOOGIE CORDOVA MD [facility] OPEN WOUND COCCYX [id number] 11/14/2015 11:43:00 11/14/2015 12:30:00 DIS Outpatient BOOGIE CORDOVA MD [facility] PREOP OPEN WOUND COCCYX [id number] 11/02/2015 12:48:00 11/02/2015 23:59:59 CLS Outpatient JEREMIAH BENTLEY MD [facility] RAD OSTEOMYELITIS COCCYX [id number] 11/02/2015 14:17:00 11/02/2015 16:00:00 DIS Outpatient JEREMIAH BENTLEY MD [facility] WOUNDCARE [id number] 08/29/2015 12:47:00 08/29/2015 00:01:00 DIS Outpatient JEREMIAH BENTLEY MD [facility] WOUNDCARE [id number] 07/28/2015 09:03:00 07/28/2015 23:59:59 CLS Outpatient JEREMIAH BENTLEY MD [facility] RAD PELVIC ULCERS [id number] 07/13/2015 13:01:00 07/13/2015 23:59:59 CLS Outpatient JEREMIAH BENTLEY MD [facility] RAD CHRONIC PRESSURE ULCER, PRESSURE ULCER OF SACRAL RE [id number] 03/29/2015 08:18:00 03/31/2015 15:00:00 DIS Outpatient JEREMIAH BENTLEY MD [facility] WOUNDCARE [id number] 02/17/2015 07:51:00 02/17/2015 23:59:59 CLS Outpatient JEREMIAH BENTLEY MD [facility] RAD HX OF SACRAL OSTEOMYLITIS , STAGE 4 PRESSURE ULCER [id number] 01/18/2015 08:09:00 01/19/2015 00:01:00 DIS Outpatient JEREMIAH BENTLEY MD [facility] WOUNDCARE [id number] 12/21/2014 08:02:00 12/26/2014 00:01:00 DIS Outpatient JEREMIAH BENTLEY MD [facility] WOUNDCARE [id number] 09/29/2014 09:55:00 09/29/2014 23:59:59 CLS Outpatient JEREMIAH BENTLEY MD [facility] RAD 3RD TOE ULCER [id number] 02/09/2014 12:27:00 02/10/2014 16:05:00 DIS Inpatient HEATHER PERALTA, JAMAR Adkins [facility] IRF UNK; SACRAL DECUBITUS ULCER
[2018-09-03 21:34] LABS: HEMATOCRIT 30 % (35-52); HEMOGLOBIN 9.6 G/DL (11.5-16.0); MEAN CORPUSCULAR HEMOGLOBIN 30 PG (25-34); MEAN CORPUSCULAR HGB CONC 32 G/DL (32-36); MEAN CORPUSCULAR VOLUME 95 FL (80-99); MEAN PLATELET VOLUME 10.3 FL (7.4-10.4); PLATELET COUNT 247 10^3/uL (130-400); WHITE BLOOD COUNT 11.8 10^3/uL (4.3-11.0)
--- NOTE | 2018-09-03 21:34 | Diagnostic Imaging Report ---
INDICATION: Respiratory distress Frontal chest obtained at 9:21 p.m. and is compared to 02/10/2014. There is cardiomegaly and poststernotomy change. There is an ET tube in place with tip overlying mid trachea. Dual-lumen dialysis catheter seen from right IJ approach with tip overlying the low SVC. There is central vascular congestion with patchy bibasilar infiltrate, right greater than left. There is no pneumothorax seen. There is no significant sized effusion. IMPRESSION: Cardiomegaly and poststernotomy change with central vascular congestion and patchy bibasilar infiltrates. ET tube tip overlies mid trachea. There is no pneumothorax or pleural fluid. Dictated by: Dictated on workstation # [id number]
[2018-09-03 21:35] LABS: BASOPHILS % (AUTO) 0 % (0-10); EOSINOPHILS % (AUTO) 0 % (0-10); LYMPHOCYTES # (AUTO) 2.9 X 10^3 (1.0-4.0); LYMPHOCYTES % (AUTO) 24 % (12-44); MONOCYTES # (AUTO) 0.5 X 10^3 (0.0-1.0); MONOCYTES % (AUTO) 4 % (0-12); NEUTROPHILS # (AUTO) 7.7 X 10^3 (1.8-7.8); NEUTROPHILS % (AUTO) 65 % (42-75)
--- NOTE | 2018-09-03 21:43 | ED General ---
General Chief Complaint: Code Blue Stated Complaint: HORTENCIA HARVEY Source of Information: EMS, Spouse History of Present Illness Date Seen by Provider: September 03, 2018 Time Seen by Provider: 21:14 Initial Comments 68 yo F presents by EMS after complaining to her that she was feeling short of breath. She then became unresponsive for him so he called 911. When they arrived she was minimally responsive then went into cardiac and respiratory arrest. She was in asystole on the monitor and was intubated. She did not receive any medication for the intubation. She did not require sedation or paralytics. She has not gone for dialysis the last 2 times that she was supposed to go on Saturday and Saturday. She does still make some urine and has an indwelling catheter. She had told her that she was not feeling well and she was short of breath. She was not having any other complaints before that. He had checked her oxygen with his finger pulse ox that he has home. On that he reported that she was running around 83% prior to becoming less responsive Allergies and Home Medications Allergies Coded Allergies: No Known Drug Allergies (Unverified , 02/09/14) Home Medications Carvedilol 12.5 Mg Tablet, 12.5 MG PO DAILY, (Reported) Clonidine HCl 0.1 Mg Tablet, 0.1 MG PO TID PRN for high blood pressure, ( Reported) take for bp>160/90 Famotidine 20 Mg Tablet, 20 MG PO DAILY, (Reported) Hydrocodone Bit/Acetaminophen 1 Tab Tab, 1-2 TAB PO Q6H PRN for PAIN-MODERATE Prescribed by: ARSLAN BRITO on 09/01/18 0818 Sodium Bicarbonate 650 Mg Tablet, 650 MG PO BID, (Reported) Warfarin Sodium 6 Mg Tablet, 6 MG PO MoWeFr, (Reported) Patient Home Medication List Home Medication List Reviewed: Yes Review of Systems Review of Systems Constitutional: No chills, No fever EENTM: no symptoms reported Respiratory: short of breath Cardiovascular: no symptoms reported Gastrointestinal: no symptoms reported Genitourinary: no symptoms reported Musculoskeletal: no symptoms reported Skin: no symptoms reported Psychiatric/Neurological: No Symptoms Reported Past Gwxmvcw-[id number]-Fvvcyz Hx Past Med/Social Hx: Reviewed Nursing Past Med/Soc Hx Patient Social History Type Used: Cigarettes Former Smoker, Quit: May 25, 2016 2nd Hand Smoke Exposure: No Recent Foreign Travel: No Contact w/Someone Who Travel: No Recent Hopitalizations: No Immunizations Up To Date Tetanus Booster (TDap): More than 5yrs PED Vaccines UTD: No Date of Pneumonia Vaccine: Jan 21, 2016 Date of Influenza Vaccine: Jan 21, 2016 Seasonal Allergies Seasonal Allergies: No Past Medical History Surgeries: Yes (triple bypass, aortic bypass, lesion from forehead) CABG, Coronary Stent, Dialysis, Tracheostomy Respiratory: No Pneumonia Cardiac: Yes (CABG X3) Coronary Artery Disease, Heart Attack Neurological: No Reproductive Disorders: No Female Reproductive Disorders: Denies Sexually Transmitted Disease: No HIV/AIDS: No Genitourinary: Yes (DIALYSIS SAT-SAT-SAT) Renal Failure, Dialysis, Neurogenic Bladder Gastrointestinal: Yes Gastroesophageal Reflux Musculoskeletal: No Endocrine: No HEENT: Yes (READING GLASSES) Loss of Vision: Bilateral Hearing Impairment: Denies Cancer: No Psychosocial: No Integumentary: No Blood Disorders: No Adverse Reaction/Blood Tranf: No (HAS HAD BLOOD WITH NO REACTION) Family Medical History Cardiovascular disease 19 MOTHER, G8 BROTHER G8 BROTHER G8 SISTER Diabetes mellitus 19 MOTHER, G8 BROTHER G8 SISTER G8 SISTER Physical Exam Vital Signs Vital Signs - First Documented 09/03/18 09/03/18 21:14 22:45 Temp 97.3 Pulse 85 Resp 18 B/P (MAP) 128/63 (84) Pulse Ox 96 O2 Delivery Mechanical Ventilator Capillary Refill : Height, Weight, BMI Height: 5'2.50" Weight: 131lbs. 0.0oz. [id number]; 23.6 BMI Method: General Appearance: Chronically ill, Other (patient is unresponsive and intubated. She is having agonal respirations over her ventilated breaths) HEENT: Other (pt intubated with ETT. pupils are minimally responsive. ) Respiratory: Rales, Other (Intubated pt with only agonal respirations of 2 to 3 spontaneous breaths a minute over the ventilated breaths) Cardiovascular: Regular Rate, Rhythm; No Normal Peripheral Pulses (weak peripheral pulses) Gastrointestinal: No Pulsatile Mass, Soft Extremity: Pedal Edema (1+ BLE) Neurologic/Psychiatric: Other (pt is intubated and not responsive. ) Skin: Cool, Pallor Focused Exam Lactate Level 09/03/18 22:12: Lactic Acid Level 5.76*H Lactic Acid Level Laboratory Tests Test 09/03/18 22:12 Lactic Acid Level 5.76 MMOL/L (0.50-2.00) *H Progress/Results/Core Measures Suspected Sepsis SIRS Temperature: Pulse: Respiratory Rate: Laboratory Tests 09/03/18 21:16: White Blood Count 11.8H Blood Pressure / Mean: 09/03/18 22:12: Lactic Acid Level 5.76*H Laboratory Tests 09/03/18 21:16: Creatinine 5.28H, INR Comment 2.4H, Platelet Count 247, Total Bilirubin 0.2 Results/Orders Lab Results Laboratory Tests Test 09/03/18 21:16 09/03/18 21:34 09/03/18 22:12 Range/Units White Blood Count 11.8 H 4.3-11.0 10^3/uL Red Blood Count 3.15 L 4.35-5.85 10^6/uL Hemoglobin 9.6 L 11.5-16.0 G/DL Hematocrit 30 L 35-52 % Mean Corpuscular Volume 95 80-99 FL Mean Corpuscular Hemoglobin 30 25-34 PG Mean Corpuscular Hemoglobin Concent 32 32-36 G/DL Red Cell Distribution Width 16.0 H 10.0-14.5 % Platelet Count 247 130-400 10^3/uL Mean Platelet Volume 10.3 7.4-10.4 FL Neutrophils (%) (Auto) 65 42-75 % Lymphocytes (%) (Auto) 24 12-44 % Monocytes (%) (Auto) 4 0-12 % Eosinophils (%) (Auto) 0 0-10 % Basophils (%) (Auto) 0 0-10 % Neutrophils # (Auto) 7.7 1.8-7.8 X 10^3 Lymphocytes # (Auto) 2.9 1.0-4.0 X 10^3 Monocytes # (Auto) 0.5 0.0-1.0 X 10^3 Eosinophils # (Auto) 0.0 0.0-0.3 10^3/uL Basophils # (Auto) 0.0 0.0-0.1 10^3/uL Prothrombin Time 27.0 H 12.2-14.7 SEC INR Comment 2.4 H 0.8-1.4 Activated Partial Thromboplast Time > 200 *H 24-35 SEC Sodium Level 132 L 135-145 MMOL/L Potassium Level 5.5 H 3.6-5.0 MMOL/L Chloride Level 91 L 98-107 MMOL/L Carbon Dioxide Level 12 L 21-32 MMOL/L Anion Gap 29 H 5-14 MMOL/L Blood Urea Nitrogen 58 H 7-18 MG/DL Creatinine 5.28 H 0.60-1.30 MG/DL Estimat Glomerular Filtration Rate 8 BUN/Creatinine Ratio 11 Glucose Level 320 H 70-105 MG/DL Calcium Level 9.0 8.5-10.1 MG/DL Corrected Calcium 9.8 8.5-10.1 MG/DL Magnesium Level 2.5 H 1.8-2.4 MG/DL Total Bilirubin 0.2 0.1-1.0 MG/DL Aspartate Amino Transf (AST/SGOT) 264 H 5-34 U/L Alanine Aminotransferase (ALT/SGPT) 222 H 0-55 U/L Alkaline Phosphatase 106 40-136 U/L Troponin T 132 *H <=10 NG/L Pro-B-Type Natriuretic Peptide 47361.0 H <75.0 PG/ML Total Protein 5.8 L 6.4-8.2 GM/DL Albumin 3.0 L 3.2-4.5 GM/DL Urine Color YELLOW Urine Clarity CLOUDY Urine pH 7.5 5-9 Urine Specific [place] <1.005 1.016-1.022 Urine Protein 1+ H NEGATIVE Urine Glucose (UA) NEGATIVE NEGATIVE Urine Ketones NEGATIVE NEGATIVE Urine Nitrite POSITIVE H NEGATIVE Urine Bilirubin NEGATIVE NEGATIVE Urine Urobilinogen 0.2 NORMAL MG/DL Urine Leukocyte Esterase 3+ H NEGATIVE Urine RBC (Auto) 2+ H NEGATIVE Urine RBC 5-10 H /HPF Urine WBC >100 H /HPF Urine Squamous Epithelial Cells 5-10 /HPF Urine Renal Epithelial Cells 2-5 /HPF Urine Crystals NONE /LPF Urine Bacteria LARGE H /HPF Urine Casts NONE /LPF Urine Mucus NEGATIVE /LPF Urine Culture Indicated YES Lactic Acid Level 5.76 *H 0.50-2.00 MMOL/L My Orders Orders - RAFI BISHOP MD Chest 1 View Ap/Pa Only (09/03/18 21:20) Cbc No Diff (09/03/18 21:26) Comprehensive Metabolic Panel (09/03/18 21:26) Magnesium (09/03/18 21:26) Lactic Acid Analyzer (09/03/18 21:26) Arterial Blood Gas (09/03/18 21:26) Ua Culture If Indicated (09/03/18 21:28) Cbc With Automated Diff (09/03/18 21:27) Troponin T (09/03/18 21:27) Ua Culture If Indicated (09/03/18 21:27) Protime With Inr (09/03/18 21:33) Partial Thromboplastin Time (09/03/18 21:33) Ekg Tracing (09/03/18 21:43) Urine Culture (09/03/18 21:34) Probnp Fs (09/03/18 21:16) Vital Signs/I&O 09/03/18 09/03/18 21:14 22:45 Temp 97.3 Pulse 85 73 Resp 18 12 B/P (MAP) 128/63 (84) 127/52 (77) Pulse Ox 96 100 O2 Delivery Mechanical Ventilator Mechanical Ventilator 09/04/18 00:00 Intake Total 400 ml Balance 400 ml Capillary Refill : Progress Note : Progress Note Pt has spontaneous pulse on arrival to the ED so I went and spoke to her about her history and presentation tonight. He stated she still wanted to be a full code. He wanted [facility] to go to [facility] since [facility] is [facility] her Nephrology doctor is at for her ICU care. 2130 I called [facility] and left a voicemail to have them call me from their transfer line. 2137 I called back [facility] and reached Carmenza at the transfer line. She stated that they did not have any ICU beds available. 2141 I called [facility] as the second choice of the . He states she has had medical care there before as well so would like her to go there. At 2147 times a was able to leave a voicemail with Marc and he stated that a triage nurse would call me back as soon as one was available. 2153 DARYL Patterson, from [facility] called back and took the details to discuss with the ICU attending. 2207 DARYL Patterson, from [facility] called back and Dr. Jackson is the accepting physician for the patient. She will go to 6503 ICU room. Her labs showed that she had a mild elevation of the white blood cell count 11.8. She was anemic. Her chemistry panel did show greatly elevated creatinine to 5.28. Her potassium was slightly elevated at 5.5. Her INR was therapeutic at 2.4. Her PTT was greater than 200 but it was drawn out of her dialysis catheter so it could've been contaminated with heparin if not enough blood was drawn as a waste. Her chest x-ray showed pulmonary vascular congestion and possible bibasilar infiltrates. There is no definite effusion. The ET tube was in good position. The staff was unable to obtain a blood gas. Urinalysis was consistent with an indwelling Humphrey catheter. Her lactic acid came back just as the flight crew was getting ready to leave that the patient. It was elevated to 5.76. No fluids or intervention were done for the lactic acid since the patient was leaving with the flight crew as the value came back. ECG Initial ECG Impression Date: September 03, 2018 Initial ECG Impression Time: 21:45 Initial ECG Rate: 84 Initial ECG Rhythm: Normal Sinus Initial ECG Comparisson: No Previous ECG Available Comment Sinus rhythm with a heart rate of 84 bpm. Prolonged MA interval of 218 ms. QT interval of 390 ms and a QT corrected interval of [address] elevation or ischemic changes. No prior tracing for comparison. Diagnostic Imaging Diagonstic Imaging: Xray Plain Films/CT/US/NM/MRI: chest Comments NAME: [facility] REC#: [id number] PT STATUS: REG ER : 1950 PHYSICIAN: RAFI BISHOP MD ADMIT DATE: 09/03/18/ER FS Signed Date of Exam:09/03/18 CHEST 1 VIEW AP/PA ONLY INDICATION: Respiratory distress Frontal chest obtained at 9:21 p.m. and is compared to 02/10/2014. There is cardiomegaly and poststernotomy change. There is an ET tube in place with tip overlying mid trachea. Dual-lumen dialysis catheter seen from right IJ approach with tip overlying the low SVC. There is central vascular congestion with patchy bibasilar infiltrate, right greater than left. There is no pneumothorax seen. There is no significant sized effusion. IMPRESSION: Cardiomegaly and poststernotomy change with central vascular congestion and patchy bibasilar infiltrates. ET tube tip overlies mid trachea. There is no pneumothorax or pleural fluid. Dictated by: Dictated on workstation # [id number] Dict: 09/03/182129 Trans: 09/03/182211 [facility] [id number] Interpreted by: ANILA RAMÍREZ MD Electronically signed by: ANILA ARMÍREZ MD 09/03/182211 Reviewed: Reviewed by Me (and radiologist reading) Critical Care Note Critical Care Total Time (minutes) 45 minutes Progress 45 minutes of critical care time was spent in direct care of the patient. This time was excluding separately billable procedures. Time was spent in obtaining history from the patient's chart and family. Time was also spent in ordering tests and evaluating results, ordering interventions and evaluating response, discussion with consultants, reviewing records, documentation in the chart. Departure Impression Primary Impression: Cardiac arrest Additional Impressions: Respiratory failure Qualified Codes: J96.00 - Acute respiratory failure, unspecified whether with hypoxia or hypercapnia End stage renal disease on dialysis Signs of return of spontaneous circulation Disposition: 02 XFER T-[facility] Condition: Critical Transfer Time Spoke to Accepting Phy: 22:28 Transfer Progress Notes I spoke with DARYL Patterson, from the Transfer center at 2208 and she called back with Dr. Jackson as the accepting [employer] provider at 2228. Pt will be admitted to [facility] ICU. [facility] is standing by for transport of the patient. Transfer Facility: [facility] Method of Transfer: Air Departure-Patient Inst. Referrals: MEGHNA CASTRO MD (PCP/Family) Primary Care Physician RAFI BISHOP MD September 03, 2018 21:43
[2018-09-03 21:45] LABS: BACTERIA,URINE LARGE /HPF; BILIRUBIN,URINE NEGATIVE (NEGATIVE); CLARITY,URINE CLOUDY; COLOR,URINE YELLOW; GLUCOSE, URINE (UA) NEGATIVE (NEGATIVE); KETONES,URINE NEGATIVE (NEGATIVE); LEUKOCYTE ESTERASE ,URINE 3+ (NEGATIVE); NITRITE,URINE POSITIVE (NEGATIVE); PH,URINE 7.5 (5-9); PROTEIN,URINE 1+ (NEGATIVE); UROBILINOGEN,URINE 0.2 MG/DL (NORMAL); WBC,URINE >100 /HPF
[2018-09-03 21:48] LABS: BILIRUBIN,TOTAL 0.2 MG/DL (0.1-1.0); CREATININE SERUM 5.28 MG/DL (0.60-1.30); POTASSIUM 5.5 MMOL/L (3.6-5.0)
[2018-09-03 21:49] LABS: TOTAL PROTEIN 5.8 GM/DL (6.4-8.2)
[2018-09-03 21:54] LABS: INR 2.4 (0.8-1.4)
[2018-09-03 21:55] LABS: PARTIAL THROMBOPLASTIN TIME > 200 SEC (24-35)
[2018-09-03 22:14] LABS: MAGNESIUM 2.5 MG/DL (1.8-2.4)
[2018-09-03 22:45] VITALS: BP 127/52
== END 2018-09-03 22:45 | disposition short-term general hospital (02) ==
LOC: EDUNIT# 21:14 → ER FS 21:15
DX: I46.9 Cardiac arrest, cause unspecified (principal); N18.6 End stage renal disease; I25.2 Old myocardial infarction; I25.10 Atherosclerotic heart disease of native coronary artery without angina pectoris; K21.9 Gastro-esophageal reflux disease without esophagitis; Z99.2 Dependence on renal dialysis; Z79.01 Long term (current) use of anticoagulants; Z93.0 Tracheostomy status; Z82.49 Family history of ischemic heart disease and other diseases of the circulatory system; Z95.5 Presence of coronary angioplasty implant and graft; Z95.1 Presence of aortocoronary bypass graft; Z98.890 Other specified postprocedural states; Z87.01 Personal history of pneumonia (recurrent)
CPT/HCPCS: 36415; 71045; 80053; 81000; 83605; 83735; 83880; 84484; 85025; 85027; 85610; 85730; 87088; 93005